=== PATIENT | female | born 1985 | race Caucasian/White ===

== ENCOUNTER 2018-08-27 22:37 | Emergency (ER) | payer BC, SELFPAY ==
[2018-08-27 22:38] VITALS: BP 137/98; PULSE 105; RESP 18; TEMP 37; O2SAT 99; BMI 39.5
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
[2018-08-27 23:07] LABS: Mucous, Urine 0 SEEN /hpf (<or=2+); Red Blood Cells-Urine 0 SEEN /hpf (0-5)
[2018-08-27 23:09] LABS: Color, Urine Straw (Yellow); Glucose, Dipstick Normal (Normal); Ketone-Dipstick Negative (Negative); Leukocyte Esterase-Dipstick 100 /ul (Negative); Nitrite-Dipstick Negative (Negative); Occult Blood-Urine Negative /ul (Negative); Protein-Dipstick Negative (Negative); Specific Gravity, Urine 1.005 (1.002-1.030); Urine Bilirubin Dipstick Negative (Negative); Urine Clarity Clear (Clear); Urine Urobilinogen Normal (Normal)
[2018-08-27 23:10] LABS: Internal QC Validated? YES +Cl - CLEAR BKGD; Pregnancy, Urine Negative Negative
[2018-08-27 23:14] LABS: Bacteria RARE /hpf (None Seen); Squamous Epithelial Cells - UA 0-5 SEEN /hpf (5-10); White Blood Cells 0-5 SEEN /hpf (0-5)
--- NOTE | 2018-08-27 23:54 | ED.DEP ---
ED Disposition - Plan for ED Patient: Instructions: Wound Care Referrals: Stanislaw Florian DO [Primary Care Provider] - Clinic,Wound [None] -
[2018-08-28 00:15] VITALS: BP 121/72; PULSE 90; RESP 15; O2SAT 98
== END 2018-08-28 00:16 | disposition home or self-care (01) ==
PROVIDERS: Emergency Provider Emergency Medicine; Family Provider Family Medicine; PCP Family Medicine
DX: R30.0 Dysuria (principal); L97.829 Non-pressure chronic ulcer of other part of left lower leg with unspecified severity; I10 Essential (primary) hypertension; Z72.0 Tobacco use; Z79.899 Other long term (current) drug therapy
CPT/HCPCS: 81001; 81025; 87077; 87086; 87088; 87186; 99283

== ENCOUNTER 2019-06-07 01:49 | Emergency (ER) | payer BC, SELFPAY ==
[2019-06-07 01:49] VITALS: BP 199/112; PULSE 93; RESP 16; TEMP 36.2; O2SAT 97; BMI 40.7
--- NOTE | 2019-06-07 02:07 | ED.DCSUM_ITS ---
- ER Visit Summary Date of Service: 06/07/19 Chief Complaint: Leg wounds History of Present Illness: The patient is a 33 F who tells me that when she was she had preeclampsia. She developed significant swelling of the legs. Her legs have continued to be swollen and as time has gone on the skin has become thick dry and now she has wounds that are not healing. She was seen earlier this year and was referred to the wound clinic. She states she did not get a call back to make an appointment. She is also out of her metoprolol that she takes for hypertension. No fevers. She denies history of diabetes. Physical Examination: Afebrile noted hypertension 199/112 (out of blood pressure medication) Gen: Well-nourished well-developed Head: Normocephalic atraumatic Eyes: Perrl EOMI ENT: TMs clear no rhinorrhea moist mucous membranes Neck: Supple no lymphadenopathy no JVD nontender CVS: Regular rate rhythm no murmurs normal S1-S2 Respiratory: No distress clear to auscultation bilaterally chest nontender Abdomen: Soft nontender nondistended normal bowel sounds no masses Back: Nontender Extremity: The lower extremities show venous stasis changes of skin thickening dry skin and discoloration. The dorsum of the right foot demonstrates approximately 3 cm ulcer. The left anterior leg demonstrates a 5 x 3 cm ulcer with granulation tissue and inferior near the level of the ankle there are 2 circular ulcers that have started to coalesce. Skin: Normal color no rash Neuro: alert orientated ?3 CN II-XII intact normal strength sensation reflexes gait cerebellar Psych: Normal affect normal mood Test Results: Wound culture was obtained. Accu-Chek was obtained - 104. Emergency Department Course and Treatment: I will refill the patient's metoprolol for her blood pressure but suggested that she should discuss with her doctor blood pressure medications as she feels fatigued on the metoprolol. She also needs to be seen at the wound care clinic I have called and left a message for them. She will be started on Keflex. Wound care discussed. Impression: 1. Venous stasis bilateral legs 2. Chronic venous stasis ulcers bilateral legs 3. Medication refill This note was generated with [employer] software. It may contain incorrect words, spelling, and punctuation that were not noted in review of the chart prior to signing ED Disposition - Plan for ED Patient: Disposition: Home or Assisted Living Instructions: Lymphedema Prescriptions: Cephalexin [Keflex] 500 mg PO Q6 #40 cap Transmission Status: Received by [facility] Metoprolol(XL)Succ [Toprol Xl (Beta Arti)] 100 mg PO DAILY #30 tab Transmission Status: Received by [facility] Referrals: Stanislaw Florian DO [Primary Care Provider] - As soon as possible Clinic,Wound [None] - As soon as possible
[2019-06-07 02:21] LABS: Bedside Glucose 104 mg/dL (70-110)
[2019-06-07] MEDS: Cephalexin 250 MG Capsule 500 MG PO (02:25)
== END 2019-06-07 02:39 | disposition home or self-care (01) ==
PROVIDERS: Emergency Provider Emergency Medicine; Family Provider Family Medicine; PCP Family Medicine
DX: I83.018 Varicose veins of right lower extremity with ulcer other part of lower leg (principal); I83.028 Varicose veins of left lower extremity with ulcer other part of lower leg; I10 Essential (primary) hypertension; E66.9 Obesity, unspecified; Z76.0 Encounter for issue of repeat prescription; Z72.0 Tobacco use
CPT/HCPCS: 82962; 87070; 87077; 87186; 87205; 99283

== ENCOUNTER 2019-06-21 10:30 | Outpatient (RCR) | payer BC, SELFPAY ==
[2019-06-14 11:34] VITALS: BP 172/105; PULSE 92; RESP 18; TEMP 36.8; BMI 40.7
--- NOTE | 2019-06-14 12:59 | HP.PCM_ITS ---
(1) Open wounds involving multiple regions of lower extremity Status: Acute Current Visit: Yes Code(s): S81.809A - Unspecified open wound, unspecified lower leg, initial encounter (2) Infected open wound Status: Acute Current Visit: Yes Code(s): T14.8XXA - Other injury of unspecified body region, initial encounter; L08.9 - Local infection of the skin and subcutaneous tissue, unspecified (3) Drug addiction Status: Acute Current Visit: Yes Code(s): F19.20 - Other psychoactive substance dependence, uncomplicated (4) Peripheral vascular disease Status: Acute Current Visit: Yes Code(s): I73.9 - Peripheral vascular disease, unspecified (5) Edema of both lower extremities due to peripheral venous insufficiency Status: Acute Current Visit: Yes Code(s): I87.2 - Venous insufficiency (chronic) (peripheral) (6) Malignant hypertension Status: Acute Current Visit: Yes Code(s): I10 - Essential (primary) hypertension History of Present Illness Date of Service: 06/14/19 Chief Complaint: Follow-up bilateral lower legs History of Wound: Patient was seen in the emergency room at [facility] on 06 07 for a infection in her right dorsal foot she states from hitting a cabinet door that never closes. Questioned about her left leg from skin popping was positive approximately 5 months ago she has had these wounds for at least 6 months. Now she has infection from poor hygiene and not caring. She has a lot of edema in her lower extremities with stasis dermatitis. 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 Patient is currently on metoprolol 50 mg but has not done any follow- up. Patient is currently on Suboxone 8 mg a day for her drug addiction problems and states her last use was 5 months ago. Past Medical History Past Medical History: Drug addiction, open wounds from injection sites abscess left leg, trauma right dorsal foot Allergies/Adverse Reactions: Allergies Sulfa (Sulfonamide Antibiotics) Adverse Reaction (Verified 06/07/19 01:52) Other Home Medications: Ambulatory Orders Medication Instructions Recorded Buprenorphine HCl/Naloxone HCl 2 mg SL DAILY 08/27/18 [Suboxone 8 mg-2 mg Sl Film] Metoprolol(XL)Succ [Toprol Xl 100 mg PO DAILY 08/27/18 (Beta Arti)] Cephalexin [Keflex] 500 mg PO Q6 #40 cap 06/07/19 Metoprolol(XL)Succ [Toprol Xl 100 mg PO DAILY #30 tab 06/07/19 (Beta Arti)] Smoking Status: Current every day smoker Review of Systems Constitutional: Denies: Chills, Fever Eyes: Denies: Blurred vision, Drainage, Pain HEENT: Denies: Difficulty Hearing, Difficulty Swallowing, Sore Throat, Visual Changes Cardiovascular: Denies: Chest Pain, Palpitations, Syncope Respiratory: Denies: Cough, Shortness of Breath Gastrointestinal: Denies: Abdominal Pain, Nausea, Vomiting Genitourinary: Denies: Dysuria, Frequency Musculoskeletal: Denies: Joint Pain, Muscle pain Skin: Reports: - - Right dorsal foot left medial lower leg and left upper medial leg. Denies: Jaundice, Rash Neurological: Denies: Balance problems, Change in Speech, Difficulty swallowing, Focal weakness Psychiatric: Denies: Anxiety, Depression Endocrine: Denies: Change in Body Habitus Hematologic/ Lymphatic: Denies: Adenopathy - Physical Exam Vital Signs Temp Pulse Resp BP 98.2 F 92 18 172/105 H 06/14/19 11:34 06/14/19 11:34 06/14/19 11:34 06/14/19 11:34 General: Oriented x3, Cooperative, Well developed HEENT: Atraumatic, PERRLA Oral: Moist Mucosa Neck: Supple, No JVD Lungs: Clear to auscultation, Normal air movement Cardiovascular: Regular rate, Regular Rhythm Abdomen: Bowel Sounds Present, Soft, Non Tender, No Hepato-splenomegaly Extremities: No clubbing, No edema Skin: Ulcer/ Wound Wound Measurements and Assessment WC - Nurse 1 - General Ulcer Measurement Start: 06/14/19 11:27 Freq: Status: Active Protocol: Activity Type Activity Date Activity User E-Sign Co-Sign Detail Recorded Client Recorded Date Recorded By Document 06/14/19 11:34 DV [id number] 06/14/19 12:12 DV 06/14/19 11:34 Wound Center Nurse 1 [Ulcer Assessment] #3 MEDIAL LLE -Combined with other wound No -Current Size (cm) - Length 4.3 -Current Size (cm) - Width 3.2 -Current Size (cm) - Depth 0.1 -Total Square Cm 13.76 -Date of Last Picture (Recall this 06/14/19 field) -Photo Taken Yes #2 LEFT MEDIAL ANKLE -Combined with other wound No -Current Size (cm) - Length 6.0 -Current Size (cm) - Width 4.0 -Current Size (cm) - Depth 0.2 -Total Square Cm 24.00 #1 DORSAL RIGHT FOOT -Combined with other wound No -Current Size (cm) - Length 4.2 -Current Size (cm) - Width 4.0 -Current Size (cm) - Depth 0.1 -Total Square Cm 16.80 -Date of Last Picture (Recall this 06/14/19 field) -Photo Taken Yes -Tunneling No -Undermining/Tunneling No -Circular Undermining No -Classification - Thickness Full Thickness without Exposed Support Structure -Exudate Amt Large -Exudate Type Yellow/Green -Wound Margin Indistinct, Non -Visible -Granulation Amt None Present (0 %) -Granulation Quality N/A -Slough/Fibrin Yes -Necrosis Amt Large (67-100%) -Necrotic Tissue Type Adherent Slough -Structure Exposed None/Limited to Skin Breakdown -Texture (Nicolasa-wound Skin Appearance) Assessed, Localized Edema ,Scarring -Moisture (Nicolasa-wound Skin Appearance Assessed, ) Weeping -Color (Nicolasa-wound Skin Appearance) Assessed, Erythema, Hemosiderin Staining -Temperature (Nicolasa-wound Skin No Abnormality Appearance) (Pt Warm) -Tenderness on Palpation (Nicolasa-wound Yes Skin Appearance) -Ulcer Cleansing Rinsed/ Irrigated with Saline -Foul Odor after Cleansing Yes -Anesthetic Used 5% Lidocaine Gel WC - Nurse 2 - General Ulcer CM Notes Start: 06/14/19 11:27 Freq: Status: Active Protocol: Activity Type Activity Date Activity User E-Sign Co-Sign Detail Recorded Client Recorded Date Recorded By Document 06/14/19 12:28 MW [id number] 06/14/19 12:43 MW 06/14/19 12:28 Wound Center Nurse 2 [Procedure/Treatment] #3 MEDIAL LLE -Time 12:28 -Correct Patient Yes -Correct Side, Site, Position Yes -Correct Procedure Yes -Procedure Performed Yes -Type of Procedure Debridement -Clinical Debridement Subcutaneous -Post Debridement Size (cm) - Length 9.0 -Post Debridement Size (cm) - Width 4.0 -Post Debridement Size (cm) - Depth 0.2 -Total Square Cm 36.00 -Wound/Ulcer Outcome Not Healed -Ulcer Cleansing Rinsed/ Irrigated with Saline -Foul Odor after Cleansing No -Bioengineered Tissue No -Bleeding Controlled with Pressure -Offloading No -Treatment Response Procedure Tolerated Well #2 LEFT MEDIAL ANKLE -Time 12:28 -Correct Patient Yes -Correct Side, Site, Position Yes -Correct Procedure Yes -Procedure Performed Yes -Type of Procedure Debridement -Clinical Debridement Subcutaneous -Post Debridement Size (cm) - Length 4.5 -Post Debridement Size (cm) - Width 3.0 -Post Debridement Size (cm) - Depth 0.1 -Total Square Cm 13.50 -Wound/Ulcer Outcome Not Healed -Ulcer Cleansing Rinsed/ Irrigated with Saline -Foul Odor after Cleansing No -Bioengineered Tissue No -Bleeding Controlled with Pressure -Offloading No -Treatment Response Procedure Tolerated Well #1 DORSAL RIGHT FOOT -Time 12:29 -Correct Patient Yes -Correct Side, Site, Position Yes -Correct Procedure Yes -Procedure Performed Yes -Type of Procedure Debridement -Clinical Debridement Subcutaneous -Post Debridement Size (cm) - Length 4.5 -Post Debridement Size (cm) - Width 4.5 -Post Debridement Size (cm) - Depth 0.1 -Total Square Cm 20.25 -Wound/Ulcer Outcome Not Healed -Ulcer Cleansing Rinsed/ Irrigated with Saline -Foul Odor after Cleansing No -Bioengineered Tissue No -Bleeding Controlled with Pressure -Offloading No -Treatment Response Procedure Tolerated Well [See Physician Procedure note for Specifics] Pain Scale: 0-10 Numeric [Pain] -Is Patient Pain Free? Yes Musculoskeletal: No Tenderness to Palpation of Joints or Extremities Lymphatic: No Cervical, Supraclavicular, or Inguinal Adenopathy Neurological: Cranial nerves II-XII grossly intact, Neuro grossly intact Psych/Mental Status: Normal Affect, Appropriate, Alert and oriented to time, place, person, mood and affect Debridement Note Post-Debridement Measurements/Treatment WC - Nurse 2 - General Ulcer CM Notes Start: 06/14/19 11:27 Freq: Status: Active Protocol: Activity Type Activity Date Activity User E-Sign Co-Sign Detail Recorded Client Recorded Date Recorded By Document 06/14/19 12:28 MW [email or web address] 06/14/19 12:43 MW 06/14/19 12:28 Wound Center Nurse 2 #3 MEDIAL LLE -Time 12:28 -Correct Patient Yes -Correct Side, Site, Position Yes -Correct Procedure Yes -Procedure Performed Yes -Type of Procedure Debridement -Clinical Debridement Subcutaneous -Post Debridement Size (cm) - Length 9.0 -Post Debridement Size (cm) - Width 4.0 -Post Debridement Size (cm) - Depth 0.2 -Total Square Cm 36.00 -Wound/Ulcer Outcome Not Healed -Ulcer Cleansing Rinsed/ Irrigated with Saline -Foul Odor after Cleansing No -Bioengineered Tissue No -Bleeding Controlled with Pressure -Offloading No -Treatment Response Procedure Tolerated Well #2 LEFT MEDIAL ANKLE -Time 12:28 -Correct Patient Yes -Correct Side, Site, Position Yes -Correct Procedure Yes -Procedure Performed Yes -Type of Procedure Debridement -Clinical Debridement Subcutaneous -Post Debridement Size (cm) - Length 4.5 -Post Debridement Size (cm) - Width 3.0 -Post Debridement Size (cm) - Depth 0.1 -Total Square Cm 13.50 -Wound/Ulcer Outcome Not Healed -Ulcer Cleansing Rinsed/ Irrigated with Saline -Foul Odor after Cleansing No -Bioengineered Tissue No -Bleeding Controlled with Pressure -Offloading No -Treatment Response Procedure Tolerated Well #1 DORSAL RIGHT FOOT -Time 12:29 -Correct Patient Yes -Correct Side, Site, Position Yes -Correct Procedure Yes -Procedure Performed Yes -Type of Procedure Debridement -Clinical Debridement Subcutaneous -Post Debridement Size (cm) - Length 4.5 -Post Debridement Size (cm) - Width 4.5 -Post Debridement Size (cm) - Depth 0.1 -Total Square Cm 20.25 -Wound/Ulcer Outcome Not Healed -Ulcer Cleansing Rinsed/ Irrigated with Saline -Foul Odor after Cleansing No -Bioengineered Tissue No -Bleeding Controlled with Pressure -Offloading No -Treatment Response Procedure Tolerated Well Pain Scale: 0-10 Numeric Is Patient Pain Free? Yes Wound debrided: Right dorsal foot Type of Debridement: Selective debridement Depth: Down to and including healthy tissue Percentage of wound debrided: 100 Instrument Used: - - Gauze Tissue Removed: Scabbing and some slough Severity: Limited To Skin Breakdown Amount of bleeding with debridement: None Bleeding Controlled with: Pressure Patient did not tolerate procedure well - Additional Wound Wound debrided: Left medial lower leg Type of Debridement: Selective debridement Anesthesia Used: 5% Lidocaine Gel Depth: Down to and including healthy tissue Percentage of wound debrided: 100 Instrument Used: - - Gauze Tissue Removed: Slough and devitalized tissue Amount of bleeding with debridement: None Bleeding Controlled with: Pressure Patient tolerated procedure: Patient did not tolerate procedure well - Additional Wound Wound debrided: Left upper medial leg Type of Debridement: Selective debridement Anesthesia Used: 5% Lidocaine Gel Depth: Down to and including healthy tissue Percentage of wound debrided: 100 Instrument Used: - Tissue Removed: Slough and devitalized tissue Severity: Limited To Skin Breakdown Amount of bleeding with debridement: None Bleeding Controlled with: Pressure Patient tolerated procedure: Patient did not tolerate procedure well Assessment/Plan Arterial and brachial studies and venous studies Active Problems Open wounds involving multiple regions of lower extremity (Acute) Infected open wound (Acute) Drug addiction (Acute) Peripheral vascular disease (Acute) Edema of both lower extremities due to peripheral venous insufficiency (Acute) Malignant hypertension (Acute) Assessment: Drug addiction skin popping. Abscesses left lower leg and upper leg from use. Right dorsal foot traumatic opening. Malignant hypertension. Poor hygiene Plan: Start scrubbing legs from knees to toes with antibacterial soap such as Dial. Apply Santyl to open areas cover with gauze Cassie and then double layer Tubigrip. Continue taking the Keflex that was prescribed in the emergency room. Ordered AB studies and venous studies. Follow-up in 1 week
[2019-06-21 11:26] VITALS: BP 184/116; PULSE 108; RESP 18; TEMP 37.3; BMI 40.7
--- NOTE | 2019-06-21 12:53 | PN.PCM_ITS ---
(1) Open wounds involving multiple regions of lower extremity Status: Acute Current Visit: Yes Code(s): S81.809A - Unspecified open wound, unspecified lower leg, initial encounter (2) Infected open wound Status: Acute Current Visit: Yes Code(s): T14.8XXA - Other injury of unspecified body region, initial encounter; L08.9 - Local infection of the skin and subcutaneous tissue, unspecified (3) Drug addiction Status: Acute Current Visit: Yes Code(s): F19.20 - Other psychoactive substance dependence, uncomplicated (4) Peripheral vascular disease Status: Acute Current Visit: Yes Code(s): I73.9 - Peripheral vascular disease, unspecified (5) Edema of both lower extremities due to peripheral venous insufficiency Status: Acute Current Visit: Yes Code(s): I87.2 - Venous insufficiency (chronic) (peripheral) (6) Malignant hypertension Status: Acute Current Visit: Yes Code(s): I10 - Essential (primary) hypertension Type of Wound Date of Service: 06/21/19 Chief Complaint: Follow-up bilateral lower legs History of Wound: Patient was seen in the emergency room at [facility] on 06 07 for a infection in her right dorsal foot she states from hitting a cabinet door that never closes. Questioned about her left leg from skin popping was positive approximately 5 months ago she has had these wounds for at least 6 months. Now she has infection from poor hygiene and not caring. She has a lot of edema in her lower extremities with stasis dermatitis. 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 Patient is currently on metoprolol 50 mg but has not done any follow- up. Patient is currently on Suboxone 8 mg a day for her drug addiction problems and states her last use was 5 months ago. Progress of Wound: The wounds both anterior lower extremities are smaller and more superficial. Patient has been scrubbing and using Santyl they look better. Patient has a poor tolerance to pain but is a drug addict and is unable to be medicated she is still in remission. Patient's blood pressure is still very high and was given an appointment with 1 of the family doctors for her medications. - Physical Exam Vital Signs Temp Pulse Resp BP 99.1 F 108 H 18 184/116 H 06/21/19 11:26 06/21/19 11:26 06/21/19 11:26 06/21/19 11:26 General: Oriented x3, Cooperative, Well developed HEENT: Atraumatic, PERRLA Oral: Moist Mucosa Neck: Supple, No JVD Lungs: Clear to auscultation, Normal air movement Cardiovascular: Regular rate, Regular Rhythm Abdomen: Bowel Sounds Present, Soft, Non Tender, No Hepato-splenomegaly Extremities: No clubbing, No edema Skin: Ulcer/ Wound - Bilateral lower extremity open ulcers Wound Measurements and Assessment WC - Nurse 1 - General Ulcer Measurement Start: 06/14/19 11:27 Freq: Status: Active Protocol: Activity Type Activity Date Activity User E-Sign Co-Sign Detail Recorded Client Recorded Date Recorded By Document 06/21/19 11:26 DV [id number] 06/21/19 11:48 DV 06/21/19 11:26 Wound Center Nurse 1 [Ulcer Assessment] #3 MEDIAL LLE -Combined with other wound No -Current Size (cm) - Length 3.5 -Current Size (cm) - Width 3.6 -Current Size (cm) - Depth 0.2 -Total Square Cm 12.60 -Photo Taken No -Epithelialization None Present -Tunneling No -Undermining/Tunneling No -Circular Undermining No -Classification - Thickness Full Thickness without Exposed Support Structure -Exudate Amt Medium -Exudate Type Serosanguineous -Wound Margin Flat & Intact -Granulation Amt None Present (0 %) -Granulation Quality N/A -Slough/Fibrin No -Necrosis Amt Large (67-100%) -Necrotic Tissue Type Adherent Slough -Structure Exposed None/Limited to Skin Breakdown -Texture (Nicolasa-wound Skin Appearance) Assessed, Scarring -Moisture (Nicolasa-wound Skin Appearance Maceration, ) Weeping -Color (Nicolasa-wound Skin Appearance) Assessed, Hemosiderin Staining -Temperature (Nicolasa-wound Skin No Abnormality Appearance) (Pt Warm) -Tenderness on Palpation (Nicolasa-wound Yes Skin Appearance) -Foul Odor after Cleansing No -Anesthetic Used 5% Lidocaine Gel #2 LEFT MEDIAL ANKLE -Combined with other wound No -Current Size (cm) - Length 4.4 -Current Size (cm) - Width 2.5 -Current Size (cm) - Depth 0.1 -Total Square Cm 11.00 -Photo Taken No -Epithelialization None Present -Tunneling No -Undermining/Tunneling No -Circular Undermining No -Classification - Thickness Full Thickness without Exposed Support Structure -Exudate Amt Medium -Exudate Type Serosanguineous -Wound Margin Flat & Intact -Granulation Amt Small (1-33%) -Granulation Quality Red -Necrosis Amt Large (67-100%) -Necrotic Tissue Type Adherent Slough -Structure Exposed None/Limited to Skin Breakdown -Texture (Nicolasa-wound Skin Appearance) Assessed, Localized Edema ,Scarring -Moisture (Nicolasa-wound Skin Appearance Assessed, ) Weeping -Color (Nicolasa-wound Skin Appearance) Assessed, Erythema, Hemosiderin Staining -Temperature (Nicolasa-wound Skin No Abnormality Appearance) (Pt Warm) -Tenderness on Palpation (Nicolasa-wound Yes Skin Appearance) -Foul Odor after Cleansing No -Anesthetic Used 5% Lidocaine Gel #1 DORSAL RIGHT FOOT -Combined with other wound No -Current Size (cm) - Length 4.2 -Current Size (cm) - Width 3.2 -Current Size (cm) - Depth 0.1 -Total Square Cm 13.44 -Photo Taken No -Epithelialization None Present -Tunneling No -Undermining/Tunneling No -Circular Undermining No -Classification - Thickness Full Thickness without Exposed Support Structure -Exudate Amt Medium -Exudate Type Serosanguineous -Wound Margin Flat & Intact -Granulation Amt None Present (0 %) -Granulation Quality N/A -Slough/Fibrin No -Necrosis Amt Large (67-100%) -Necrotic Tissue Type Adherent Slough -Structure Exposed None/Limited to Skin Breakdown -Texture (Nicolasa-wound Skin Appearance) Assessed, Scarring -Moisture (Nicolasa-wound Skin Appearance Assessed, ) Weeping -Color (Nicolasa-wound Skin Appearance) Assessed, Hemosiderin Staining -Temperature (Nicolasa-wound Skin No Abnormality Appearance) (Pt Warm) -Tenderness on Palpation (Nicolasa-wound Yes Skin Appearance) -Foul Odor after Cleansing No -Anesthetic Used 5% Lidocaine Gel WC - Nurse 2 - General Ulcer CM Notes Start: 06/14/19 11:27 Freq: Status: Active Protocol: Activity Type Activity Date Activity User E-Sign Co-Sign Detail Recorded Client Recorded Date Recorded By Document 06/21/19 11:57 MW [id number] 06/21/19 12:06 MW 06/21/19 11:57 Wound Center Nurse 2 [Procedure/Treatment] #3 MEDIAL LLE -Time 11:57 -Correct Patient Yes -Correct Side, Site, Position Yes -Correct Procedure Yes -Procedure Performed Yes -Type of Procedure Debridement -Clinical Debridement Subcutaneous -Post Debridement Size (cm) - Length 3.5 -Post Debridement Size (cm) - Width 3.8 -Post Debridement Size (cm) - Depth 0.1 -Total Square Cm 13.30 -Wound/Ulcer Outcome Not Healed -Ulcer Cleansing Rinsed/ Irrigated with Saline -Foul Odor after Cleansing No -Bioengineered Tissue No -Bleeding Controlled with Pressure -Offloading No -Treatment Response Procedure Tolerated Well #2 LEFT MEDIAL ANKLE -Time 11:59 -Correct Patient Yes -Correct Side, Site, Position Yes -Correct Procedure Yes -Procedure Performed Yes -Type of Procedure Debridement -Clinical Debridement Subcutaneous -Post Debridement Size (cm) - Length 4.2 -Post Debridement Size (cm) - Width 3.5 -Post Debridement Size (cm) - Depth 0.1 -Total Square Cm 14.70 -Wound/Ulcer Outcome Not Healed -Ulcer Cleansing Rinsed/ Irrigated with Saline -Foul Odor after Cleansing No -Bioengineered Tissue No -Bleeding Controlled with Pressure -Offloading No -Treatment Response Procedure Tolerated Well #1 DORSAL RIGHT FOOT -Time 11:59 -Correct Patient Yes -Correct Side, Site, Position Yes -Correct Procedure Yes -Procedure Performed Yes -Type of Procedure Debridement -Clinical Debridement Subcutaneous -Post Debridement Size (cm) - Length 4.1 -Post Debridement Size (cm) - Width 3.5 -Post Debridement Size (cm) - Depth 0.1 -Total Square Cm 14.35 -Wound/Ulcer Outcome Not Healed -Ulcer Cleansing Rinsed/ Irrigated with Saline -Foul Odor after Cleansing No -Bioengineered Tissue No -Bleeding Controlled with Pressure -Offloading No -Treatment Response Procedure Tolerated Well [See Physician Procedure note for Specifics] Pain Scale: 0-10 Numeric [Pain] -Is Patient Pain Free? Yes Musculoskeletal: No Tenderness to Palpation of Joints or Extremities Lymphatic: No Cervical, Supraclavicular, or Inguinal Adenopathy Neurological: Cranial nerves II-XII grossly intact, Neuro grossly intact Psych/Mental Status: Normal Affect, Appropriate Debridement Note Post-Debridement Measurements/Treatment WC - Nurse 2 - General Ulcer CM Notes Start: 06/14/19 11:27 Freq: Status: Active Protocol: Activity Type Activity Date Activity User E-Sign Co-Sign Detail Recorded Client Recorded Date Recorded By Document 06/14/19 12:28 MW [id number] 06/14/19 12:43 MW Document 06/21/19 11:57 MW [id number] 06/21/19 12:06 MW 06/14/19 06/21/19 12:28 11:57 Wound Center Nurse 2 #3 MEDIAL LLE -Time 12:28 11:57 -Correct Patient Yes Yes -Correct Side, Site, Position Yes Yes -Correct Procedure Yes Yes -Procedure Performed Yes Yes -Type of Procedure Debridement Debridement -Clinical Debridement Subcutaneous Subcutaneous -Post Debridement Size (cm) - Length 9.0 3.5 -Post Debridement Size (cm) - Width 4.0 3.8 -Post Debridement Size (cm) - Depth 0.2 0.1 -Total Square Cm 36.00 13.30 -Wound/Ulcer Outcome Not Healed Not Healed -Ulcer Cleansing Rinsed/ Rinsed/ Irrigated with Irrigated with Saline Saline -Foul Odor after Cleansing No No -Bioengineered Tissue No No -Bleeding Controlled with Pressure Pressure -Offloading No No -Treatment Response Procedure Procedure Tolerated Well Tolerated Well #2 LEFT MEDIAL ANKLE -Time 12:28 11:59 -Correct Patient Yes Yes -Correct Side, Site, Position Yes Yes -Correct Procedure Yes Yes -Procedure Performed Yes Yes -Type of Procedure Debridement Debridement -Clinical Debridement Subcutaneous Subcutaneous -Post Debridement Size (cm) - Length 4.5 4.2 -Post Debridement Size (cm) - Width 3.0 3.5 -Post Debridement Size (cm) - Depth 0.1 0.1 -Total Square Cm 13.50 14.70 -Wound/Ulcer Outcome Not Healed Not Healed -Ulcer Cleansing Rinsed/ Rinsed/ Irrigated with Irrigated with Saline Saline -Foul Odor after Cleansing No No -Bioengineered Tissue No No -Bleeding Controlled with Pressure Pressure -Offloading No No -Treatment Response Procedure Procedure Tolerated Well Tolerated Well #1 DORSAL RIGHT FOOT -Time 12:29 11:59 -Correct Patient Yes Yes -Correct Side, Site, Position Yes Yes -Correct Procedure Yes Yes -Procedure Performed Yes Yes -Type of Procedure Debridement Debridement -Clinical Debridement Subcutaneous Subcutaneous -Post Debridement Size (cm) - Length 4.5 4.1 -Post Debridement Size (cm) - Width 4.5 3.5 -Post Debridement Size (cm) - Depth 0.1 0.1 -Total Square Cm 20.25 14.35 -Wound/Ulcer Outcome Not Healed Not Healed -Ulcer Cleansing Rinsed/ Rinsed/ Irrigated with Irrigated with Saline Saline -Foul Odor after Cleansing No No -Bioengineered Tissue No No -Bleeding Controlled with Pressure Pressure -Offloading No No -Treatment Response Procedure Procedure Tolerated Well Tolerated Well Pain Scale: 0-10 Numeric Is Patient Pain Free? Yes Yes Wound debrided: Left superior ulcer Type of Debridement: Excisional debridement Anesthesia Used: 5% Lidocaine Gel Depth: Down to and including healthy tissue, in the subcutaneous layer Percentage of wound debrided: 100 Instrument Used: 5mm curette Tissue Removed: Devitalized tissue slough and fibrin Severity: Limited To Skin Breakdown Amount of bleeding with debridement: Mild Bleeding Controlled with: Compression and gauze Patient tolerated procedure well - Additional Wound Wound debrided: Left lower anterior extremity ulcers Laterality: Left Anesthesia Used: 5% Lidocaine Gel Depth: Down to and including healthy tissue, in the subcutaneous layer Percentage of wound debrided: 100 Instrument Used: 7mm curette Tissue Removed: Fibrin and some slough devitalized tissue Severity: Limited To Skin Breakdown Amount of bleeding with debridement: Mild Bleeding Controlled with: Compression and gauze Patient tolerated procedure: Patient tolerated procedure well - Additional Wound Wound debrided: Right dorsal foot Type of Debridement: Excisional debridement Anesthesia Used: 5% Lidocaine Gel Depth: Down to and including healthy tissue Percentage of wound debrided: 100 Instrument Used: 5mm curette Tissue Removed: Devitalized tissue slough and fibrin Severity: Limited To Skin Breakdown Amount of bleeding with debridement: Mild Bleeding Controlled with: Pressure, Compression and gauze Patient tolerated procedure: Patient tolerated procedure well Assessment/Plan Active Problems Open wounds involving multiple regions of lower extremity (Acute) Infected open wound (Acute) Drug addiction (Acute) Peripheral vascular disease (Acute) Edema of both lower extremities due to peripheral venous insufficiency (Acute) Malignant hypertension (Acute) Assessment: Drug addiction skin popping. Abscesses left lower leg and upper leg from use. Right dorsal foot traumatic opening. Malignant hypertension. Poor hygiene Plan: Start scrubbing legs from knees to toes with antibacterial soap such as Dial. Apply Santyl to open areas cover with gauze Cassie and then double layer Tubigrip. Continue taking the Keflex that was prescribed in the emergency room. Ordered AB studies and venous studies. Follow-up in 1 week
== END 2019-07-04 23:59 ==
LOC: WC 10:30
PROVIDERS: Family Provider Family Medicine; PCP Family Medicine; Visit Provider Nurse Practitioner
DX: I73.9 Peripheral vascular disease, unspecified (principal); I87.2 Venous insufficiency (chronic) (peripheral); L97.511 Non-pressure chronic ulcer of other part of right foot limited to breakdown of skin; L97.821 Non-pressure chronic ulcer of other part of left lower leg limited to breakdown of skin; F19.20 Other psychoactive substance dependence, uncomplicated; I10 Essential (primary) hypertension; L02.416 Cutaneous abscess of left lower limb; F17.200 Nicotine dependence, unspecified, uncomplicated; Z79.899 Other long term (current) drug therapy
CPT/HCPCS: 11042; 11045; 99213; G0463

== ENCOUNTER → 2019-06-29 13:37 | Outpatient (CLI) | payer BC, SELFPAY ==
[2019-06-21 11:26] VITALS: BMI 40.7
[2019-06-29 15:57] LABS: ALB/GLOB Ratio 0.9 RATIO (0.9-2.4); AST(SGOT) 23 U/L (15-37); Alanine Aminotransfer ALT/SGPT 17 U/L (13-56); Albumin, Serum 3.5 g/dL (3.2-5.0); Alkaline Phosphatase 70 U/L (45-117); Anion Gap 8 (5-15); BUN 4 mg/dL (7-18); BUN/Creat Ratio 6.5 RATIO (10-20); Calcium,Total 8.9 mg/dL (8.5-10.1); Chloride 100 mmol/L (98-107); Cholesterol 153 mg/dL (200); Creatinine, Serum 0.62 mg/dL (0.55-1.02); EST Glomerular Filtration Rate 119 mL/min (>60); Est Glom Filt Rate - Afr Amer 144 mL/min (>60); Free T3 3.8 pg/mL (2.18-3.98); Globulin 4.1 g/dL (2.2-4.2); Glucose 87 mg/dL (74-106); High Density Lipoprotein 37 mg/dL; Potassium 3.4 mmol/L (3.5-5.1); Protein, Total 7.6 g/dL (6.4-8.2); Sodium Level 137 mmol/L (136-145); T4 Free Direct 1.05 ng/dL (0.76-1.46); Thyroid Stim Hormone (TSH) 2.63 uIU/mL (0.358-3.74); Triglycerides 135 mg/dL; Very Low Density Lipoprotein 27 mg/dL (5-40)
[2019-06-29 16:27] LABS: Absolute Lymphocyte Count 1.49 X10^3/uL (0.83-4.51); Absolute Neutrophil Count 4.7 X10^3/uL (2.0-7.7); Basophil# 0.03 X10^3/uL; Basophil% 0.4 % (0-1); Eosinophil# 0.07 X10^3/uL; Hematocrit 43.1 % (37-47); Hemoglobin 13.9 g/dL (12.0-15.0); Lymphocyte # 1.49 X10^3/ul (4.0); Lymphocyte % 22.3 % (19-41); Mean Corp Hgb Conc 32.3 g/dL (32-36); Mean Corpuscular Hgb 32.1 pg (27.0-32.0); Mean Corpuscular Volume 99.5 fL (81-99); Mean Platelet Vol. 9.1 fl (6.2-12.0); Monocyte# 0.39 X10^3/uL; Monocyte% 5.8 % (0-10); NRBC Flagged by Analyzer 0 % (0-5); Neutrophil # 4.66 X10^3/uL (2.7-7.7); Neutrophil % 70.1 % (47-70); Platelet Count 160 K/mm3 (150-450); RBC Distribution Width SD 50.1 fl (35.1-43.9); Red Blood Count 4.33 M/mm3 (4.2-5.4); White Blood Count 6.7 K/mm3 (4.4-11.0)
== END ==
PROVIDERS: Family Provider Family Medicine; PCP Family Medicine; Visit Provider Family Medicine
DX: I10 Essential (primary) hypertension (principal); E01.0 Iodine-deficiency related diffuse (endemic) goiter; R30.0 Dysuria
CPT/HCPCS: 36415; 80053; 80061; 84439; 84443; 84481; 85025; 87086; 87088; 87186

== ENCOUNTER 2019-08-02 11:00 | Outpatient (RCR) | payer BC, SELFPAY ==
[2019-07-05 01:05] VITALS: BP 184/116; PULSE 108; RESP 18; TEMP 37.3
[2019-07-06 11:34] VITALS: BP 149/96; PULSE 99; RESP 18; TEMP 36.4; BMI 40.7
--- NOTE | 2019-07-06 12:56 | PCM.WC.PN ---
(1) Drug addiction Status: Acute Current Visit: Yes Code(s): F19.20 - Other psychoactive substance dependence, uncomplicated (2) Edema of both lower extremities due to peripheral venous insufficiency Status: Acute Current Visit: Yes Code(s): I87.2 - Venous insufficiency (chronic) (peripheral) (3) Infected open wound Status: Acute Current Visit: Yes Code(s): T14.8XXA - Other injury of unspecified body region, initial encounter; L08.9 - Local infection of the skin and subcutaneous tissue, unspecified (4) Malignant hypertension Status: Acute Current Visit: Yes Code(s): I10 - Essential (primary) hypertension (5) Open wounds involving multiple regions of lower extremity Status: Acute Current Visit: Yes Code(s): S81.809A - Unspecified open wound, unspecified lower leg, initial encounter (6) Peripheral vascular disease Status: Acute Current Visit: Yes Code(s): I73.9 - Peripheral vascular disease, unspecified Type of Wound Date of Service: 07/06/19 Chief Complaint: Follow-up bilateral lower legs History of Wound: Patient was seen in the emergency room at [facility] on 06 07 for a infection in her right dorsal foot she states from hitting a cabinet door that never closes. Questioned about her left leg from skin popping was positive approximately 5 months ago she has had these wounds for at least 6 months. Now she has infection from poor hygiene and not caring. She has a lot of edema in her lower extremities with stasis dermatitis. 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 Patient is currently on metoprolol 50 mg but has not done any follow-up. Patient is currently on Suboxone 8 mg a day for her drug addiction problems and states her last use was 5 months ago. Progress of Wound: The wounds both anterior lower extremities are smaller and more superficial. Patient has been scrubbing and using Santyl they look better. Patient has a poor tolerance to pain but is a drug addict and is unable to be medicated she is still in remission. Patient's blood pressure is still very high and was given an appointment with 1 of the family doctors for her medications. - Physical Exam Vital Signs Temp Pulse Resp BP 97.6 F L 99 18 149/96 H 07/06/19 11:34 07/06/19 11:34 07/06/19 11:34 07/06/19 11:34 General: Oriented x3, Cooperative, Well developed HEENT: Atraumatic, PERRLA Oral: Moist Mucosa Neck: Supple, No JVD Lungs: Clear to auscultation, Normal air movement Cardiovascular: Regular rate, Regular Rhythm Abdomen: Bowel Sounds Present, Soft, Non Tender, No Hepato-splenomegaly Extremities: No clubbing, No edema Skin: Ulcer/ Wound - Open wounds on right dorsal foot and left medial ankle and left lower leg Wound Measurements and Assessment WC - Nurse 1 - General Ulcer Measurement Start: 07/06/19 11:34 Freq: Status: Active Protocol: Activity Type Activity Date Activity User E-Sign Co-Sign Detail Recorded Client Recorded Date Recorded By Document 07/06/19 11:34 RB [id number] 07/06/19 11:39 RB 07/06/19 11:34 Wound Center Nurse 1 [Ulcer Assessment] #3 MEDIAL LLE -Combined with other wound No -Current Size (cm) - Length 2.9 -Current Size (cm) - Width 3 -Current Size (cm) - Depth 0.1 -Total Square Cm 8.7 -Tunneling No -Undermining/Tunneling No -Circular Undermining No -Exudate Amt Small -Exudate Type Serosanguineous -Wound Margin Flat & Intact -Granulation Amt Medium (34-66%) -Granulation Quality Gratis -Slough/Fibrin Yes -Necrosis Amt Medium (34-66%) -Necrotic Tissue Type Adherent Slough -Structure Exposed N/A -Texture (Nicolasa-wound Skin Appearance) Assessed -Moisture (Nicolasa-wound Skin Appearance Assessed ) -Color (Nicolasa-wound Skin Appearance) Hemosiderin Staining -Temperature (Nicolasa-wound Skin No Abnormality Appearance) (Pt Warm) -Tenderness on Palpation (Nicolasa-wound No Skin Appearance) -Ulcer Cleansing Wound Cleanser -Foul Odor after Cleansing No -Anesthetic Used 4% Lidocaine Solution,5% Lidocaine Gel #2 LEFT MEDIAL ANKLE -Combined with other wound No -Current Size (cm) - Length 3.5 -Current Size (cm) - Width 2 -Current Size (cm) - Depth 0.1 -Total Square Cm 7.0 -Tunneling No -Undermining/Tunneling No -Circular Undermining No -Exudate Amt Small -Exudate Type Serosanguineous -Wound Margin Flat & Intact -Granulation Amt Medium (34-66%) -Granulation Quality Gratis -Slough/Fibrin Yes -Necrosis Amt Medium (34-66%) -Necrotic Tissue Type Adherent Slough -Structure Exposed N/A -Texture (Nicolasa-wound Skin Appearance) Assessed -Moisture (Nicolasa-wound Skin Appearance Assessed ) -Color (Nicolasa-wound Skin Appearance) Assessed, Hemosiderin Staining -Temperature (Nicolasa-wound Skin No Abnormality Appearance) (Pt Warm) -Tenderness on Palpation (Nicolasa-wound No Skin Appearance) -Ulcer Cleansing Wound Cleanser -Foul Odor after Cleansing No -Anesthetic Used 4% Lidocaine Solution,5% Lidocaine Gel #1 DORSAL RIGHT FOOT -Combined with other wound No -Current Size (cm) - Length 3.7 -Current Size (cm) - Width 2.5 -Current Size (cm) - Depth 0.1 -Total Square Cm 9.25 -Tunneling No -Undermining/Tunneling No -Circular Undermining No -Exudate Amt Small -Exudate Type Serosanguineous -Wound Margin Flat & Intact -Granulation Amt Medium (34-66%) -Granulation Quality Gratis -Slough/Fibrin Yes -Necrosis Amt Small (1-33%) -Necrotic Tissue Type Adherent Slough -Structure Exposed N/A -Texture (Nicolasa-wound Skin Appearance) Assessed -Moisture (Nicolasa-wound Skin Appearance Assessed ) -Color (Nicolasa-wound Skin Appearance) Hemosiderin Staining -Temperature (Nicolasa-wound Skin No Abnormality Appearance) (Pt Warm) -Tenderness on Palpation (Nicolasa-wound No Skin Appearance) -Ulcer Cleansing Wound Cleanser -Foul Odor after Cleansing No -Anesthetic Used 4% Lidocaine Solution,5% Lidocaine Gel [Edema Assessment] -Lower Limb Edema Present Yes -Right Calf (cm) 42.2 -Right Ankle (cm) 24 -Left Calf (cm) 39.8 -Left Ankle (cm) 24.2 WC - Nurse 2 - General Ulcer CM Notes Start: 07/06/19 11:34 Freq: Status: Active Protocol: Activity Type Activity Date Activity User E-Sign Co-Sign Detail Recorded Client Recorded Date Recorded By Document 07/06/19 12:09 MW [id number] 07/06/19 12:18 MW 07/06/19 12:09 Wound Center Nurse 2 [Procedure/Treatment] #3 MEDIAL LLE -Time 12:09 -Correct Patient Yes -Correct Side, Site, Position Yes -Correct Procedure Yes -Procedure Performed Yes -Type of Procedure Debridement -Clinical Debridement Subcutaneous -Post Debridement Size (cm) - Length 4.0 -Post Debridement Size (cm) - Width 3.0 -Post Debridement Size (cm) - Depth 0.1 -Total Square Cm 12.00 -Wound/Ulcer Outcome Not Healed -Ulcer Cleansing Rinsed/ Irrigated with Saline -Foul Odor after Cleansing No -Bioengineered Tissue No -Bleeding Controlled with Pressure -Offloading No -Treatment Response Procedure Tolerated Well #2 LEFT MEDIAL ANKLE -Time 12:10 -Correct Patient Yes -Correct Side, Site, Position Yes -Correct Procedure Yes -Procedure Performed Yes -Type of Procedure Debridement -Clinical Debridement Subcutaneous -Post Debridement Size (cm) - Length 3.5 -Post Debridement Size (cm) - Width 2.0 -Post Debridement Size (cm) - Depth 0.1 -Total Square Cm 7.00 -Wound/Ulcer Outcome Not Healed -Ulcer Cleansing Rinsed/ Irrigated with Saline -Foul Odor after Cleansing No -Bioengineered Tissue No -Bleeding Controlled with Pressure -Offloading No -Treatment Response Procedure Tolerated Well #1 DORSAL RIGHT FOOT -Time 12:10 -Correct Patient Yes -Correct Side, Site, Position Yes -Correct Procedure Yes -Procedure Performed Yes -Type of Procedure Debridement -Clinical Debridement Subcutaneous -Post Debridement Size (cm) - Length 3.0 -Post Debridement Size (cm) - Width 2.7 -Post Debridement Size (cm) - Depth 0.1 -Total Square Cm 8.10 -Wound/Ulcer Outcome Not Healed -Ulcer Cleansing Rinsed/ Irrigated with Saline -Foul Odor after Cleansing No -Bioengineered Tissue No -Bleeding Controlled with Pressure -Offloading No -Treatment Response Procedure Tolerated Well [See Physician Procedure note for Specifics] Pain Scale: 0-10 Numeric [Pain] -Is Patient Pain Free? Yes Musculoskeletal: No Tenderness to Palpation of Joints or Extremities Lymphatic: No Cervical, Supraclavicular, or Inguinal Adenopathy Neurological: Cranial nerves II-XII grossly intact, Neuro grossly intact Psych/Mental Status: Normal Affect, Appropriate Debridement Note Post-Debridement Measurements/Treatment WC - Nurse 2 - General Ulcer CM Notes Start: 07/06/19 11:34 Freq: Status: Active Protocol: Activity Type Activity Date Activity User E-Sign Co-Sign Detail Recorded Client Recorded Date Recorded By Document 07/06/19 12:09 MW [id number] 07/06/19 12:18 MW 07/06/19 12:09 Wound Center Nurse 2 #3 MEDIAL LLE -Time 12:09 -Correct Patient Yes -Correct Side, Site, Position Yes -Correct Procedure Yes -Procedure Performed Yes -Type of Procedure Debridement -Clinical Debridement Subcutaneous -Post Debridement Size (cm) - Length 4.0 -Post Debridement Size (cm) - Width 3.0 -Post Debridement Size (cm) - Depth 0.1 -Total Square Cm 12.00 -Wound/Ulcer Outcome Not Healed -Ulcer Cleansing Rinsed/ Irrigated with Saline -Foul Odor after Cleansing No -Bioengineered Tissue No -Bleeding Controlled with Pressure -Offloading No -Treatment Response Procedure Tolerated Well #2 LEFT MEDIAL ANKLE -Time 12:10 -Correct Patient Yes -Correct Side, Site, Position Yes -Correct Procedure Yes -Procedure Performed Yes -Type of Procedure Debridement -Clinical Debridement Subcutaneous -Post Debridement Size (cm) - Length 3.5 -Post Debridement Size (cm) - Width 2.0 -Post Debridement Size (cm) - Depth 0.1 -Total Square Cm 7.00 -Wound/Ulcer Outcome Not Healed -Ulcer Cleansing Rinsed/ Irrigated with Saline -Foul Odor after Cleansing No -Bioengineered Tissue No -Bleeding Controlled with Pressure -Offloading No -Treatment Response Procedure Tolerated Well #1 DORSAL RIGHT FOOT -Time 12:10 -Correct Patient Yes -Correct Side, Site, Position Yes -Correct Procedure Yes -Procedure Performed Yes -Type of Procedure Debridement -Clinical Debridement Subcutaneous -Post Debridement Size (cm) - Length 3.0 -Post Debridement Size (cm) - Width 2.7 -Post Debridement Size (cm) - Depth 0.1 -Total Square Cm 8.10 -Wound/Ulcer Outcome Not Healed -Ulcer Cleansing Rinsed/ Irrigated with Saline -Foul Odor after Cleansing No -Bioengineered Tissue No -Bleeding Controlled with Pressure -Offloading No -Treatment Response Procedure Tolerated Well Pain Scale: 0-10 Numeric Is Patient Pain Free? Yes Wound debrided: Right dorsal foot Type of Debridement: Excisional debridement Anesthesia Used: 5% Lidocaine Gel Depth: Down to and including healthy tissue, in the subcutaneous layer Percentage of wound debrided: 100 Instrument Used: 7mm curette Tissue Removed: Devitalized tissue and fibrin and some slough Severity: Limited To Skin Breakdown Amount of bleeding with debridement: None Bleeding Controlled with: Pressure - Additional Wound Wound debrided: Left lower leg medial ankle Type of Debridement: Excisional debridement Anesthesia Used: 5% Lidocaine Gel Depth: Down to and including healthy tissue Percentage of wound debrided: 100 Instrument Used: 7mm curette Tissue Removed: Devitalized tissue and fibrin Severity: Limited To Skin Breakdown Amount of bleeding with debridement: None Bleeding Controlled with: Compression and gauze Patient tolerated procedure: Patient tolerated procedure well - Additional Wound Wound debrided: Left medial lower leg Type of Debridement: Excisional debridement Anesthesia Used: 5% Lidocaine Gel Depth: Down to and including healthy tissue, in the subcutaneous layer Percentage of wound debrided: 100 Instrument Used: 7mm curette Tissue Removed: Devitalized tissue and fibrin Assessment/Plan Active Problems Open wounds involving multiple regions of lower extremity (Acute) Infected open wound (Acute) Drug addiction (Acute) Peripheral vascular disease (Acute) Edema of both lower extremities due to peripheral venous insufficiency (Acute) Malignant hypertension (Acute) Assessment: Drug addiction skin popping. Abscesses left lower leg and upper leg from use. Right dorsal foot traumatic opening. Malignant hypertension. Poor hygiene Plan: Start scrubbing legs from knees to toes with antibacterial soap such as Dial. Apply Santyl to open areas cover with gauze Cassie and then double layer Tubigrip. Ordered AB studies and venous studies. Follow-up in 2 week
[2019-07-19 11:21] VITALS: BP 140/83; PULSE 87; RESP 18; TEMP 36.4; BMI 40.7
--- NOTE | 2019-07-19 12:44 | PCM.WC.PN ---
(1) Drug addiction Status: Acute Current Visit: Yes Code(s): F19.20 - Other psychoactive substance dependence, uncomplicated (2) Edema of both lower extremities due to peripheral venous insufficiency Status: Acute Current Visit: Yes Code(s): I87.2 - Venous insufficiency (chronic) (peripheral) (3) Infected open wound Status: Acute Current Visit: Yes Code(s): T14.8XXA - Other injury of unspecified body region, initial encounter; L08.9 - Local infection of the skin and subcutaneous tissue, unspecified (4) Malignant hypertension Status: Acute Current Visit: Yes Code(s): I10 - Essential (primary) hypertension (5) Open wounds involving multiple regions of lower extremity Status: Acute Current Visit: Yes Code(s): S81.809A - Unspecified open wound, unspecified lower leg, initial encounter (6) Peripheral vascular disease Status: Acute Current Visit: Yes Code(s): I73.9 - Peripheral vascular disease, unspecified Type of Wound Date of Service: 07/19/19 Chief Complaint: Follow-up bilateral lower legs History of Wound: Patient was seen in the emergency room at [facility] on 06 07 for a infection in her right dorsal foot she states from hitting a cabinet door that never closes. Questioned about her left leg from skin popping was positive approximately 5 months ago she has had these wounds for at least 6 months. Now she has infection from poor hygiene and not caring. She has a lot of edema in her lower extremities with stasis dermatitis. 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 Patient is currently on metoprolol 50 mg but has not done any follow-up. Patient is currently on Suboxone 8 mg a day for her drug addiction problems and states her last use was 5 months ago. Progress of Wound: The wounds both anterior lower extremities are smaller and more superficial. Patient has been scrubbing and using Santyl they look better. Patient has a poor tolerance to pain but is a drug addict and is unable to be medicated she is still in remission. Patient's blood pressure is still very high and was given an appointment with 1 of the family doctors for her medications. Her wounds have dramatically improved - Physical Exam Vital Signs Temp Pulse Resp BP 97.5 F L 87 18 140/83 H 07/19/19 11:21 07/19/19 11:21 07/19/19 11:21 07/19/19 11:21 General: Oriented x3, Cooperative, Well developed HEENT: Atraumatic, PERRLA Oral: Moist Mucosa Neck: Supple, No JVD Lungs: Clear to auscultation, Normal air movement Cardiovascular: Regular rate, Regular Rhythm Abdomen: Bowel Sounds Present, Soft, Non Tender, No Hepato-splenomegaly Extremities: No clubbing, No edema Skin: Ulcer/ Wound - Right dorsal foot left medial leg left medial ankle Wound Measurements and Assessment WC - Nurse 1 - General Ulcer Measurement Start: 07/06/19 11:34 Freq: Status: Active Protocol: Activity Type Activity Date Activity User E-Sign Co-Sign Detail Recorded Client Recorded Date Recorded By Document 07/19/19 11:21 [id number] 07/19/19 11:31 BS 07/19/19 11:21 Wound Center Nurse 1 [Ulcer Assessment] #3 MEDIAL LLE -Combined with other wound No -Current Size (cm) - Length 3 -Current Size (cm) - Width 2.7 -Current Size (cm) - Depth 0.1 -Total Square Cm 8.1 -Moisture (Nicolasa-wound Skin Appearance Assessed,Dry/ ) Scaly -Color (Nicolasa-wound Skin Appearance) Assessed, Hemosiderin Staining -Tenderness on Palpation (Nicolasa-wound Yes Skin Appearance) -Ulcer Cleansing Soap and water -Foul Odor after Cleansing No -Anesthetic Used 4% Lidocaine Solution #2 LEFT MEDIAL ANKLE -Combined with other wound No -Current Size (cm) - Length 3.2 -Current Size (cm) - Width 1.5 -Current Size (cm) - Depth 0.1 -Total Square Cm 4.80 -Moisture (Nicolasa-wound Skin Appearance Assessed,Dry/ ) Scaly -Color (Nicolasa-wound Skin Appearance) Assessed, Hemosiderin Staining -Tenderness on Palpation (Nicolasa-wound Yes Skin Appearance) -Ulcer Cleansing Soap and water -Anesthetic Used 4% Lidocaine Solution #1 DORSAL RIGHT FOOT -Combined with other wound No -Current Size (cm) - Length 3.4 -Current Size (cm) - Width 3 -Current Size (cm) - Depth 0.1 -Total Square Cm 10.2 -Moisture (Nicolasa-wound Skin Appearance Assessed,Dry/ ) Scaly -Color (Nicolasa-wound Skin Appearance) Assessed, Hemosiderin Staining -Ulcer Cleansing Soap and water -Anesthetic Used 4% Lidocaine Solution WC - Nurse 2 - General Ulcer CM Notes Start: 07/06/19 11:34 Freq: Status: Active Protocol: Activity Type Activity Date Activity User E-Sign Co-Sign Detail Recorded Client Recorded Date Recorded By Document 07/19/19 11:52 MW [id number] 07/19/19 12:04 MW 07/19/19 11:52 Wound Center Nurse 2 [Procedure/Treatment] #3 MEDIAL LLE -Time 11:54 -Correct Patient Yes -Correct Side, Site, Position Yes -Correct Procedure Yes -Procedure Performed Yes -Type of Procedure Debridement -Clinical Debridement Subcutaneous -Post Debridement Size (cm) - Length 2.8 -Post Debridement Size (cm) - Width 2.7 -Post Debridement Size (cm) - Depth 0.2 -Total Square Cm 7.56 -Wound/Ulcer Outcome Not Healed -Ulcer Cleansing Rinsed/ Irrigated with Saline -Foul Odor after Cleansing No -Bioengineered Tissue No -Bleeding Controlled with Pressure -Offloading No -Treatment Response Procedure Tolerated Well #2 LEFT MEDIAL ANKLE -Time 11:55 -Correct Patient Yes -Correct Side, Site, Position Yes -Correct Procedure Yes -Procedure Performed Yes -Type of Procedure Debridement -Clinical Debridement Subcutaneous -Post Debridement Size (cm) - Length 3.5 -Post Debridement Size (cm) - Width 1.7 -Post Debridement Size (cm) - Depth 0.1 -Total Square Cm 5.95 -Wound/Ulcer Outcome Not Healed -Ulcer Cleansing Rinsed/ Irrigated with Saline -Foul Odor after Cleansing No -Bioengineered Tissue No -Bleeding Controlled with Pressure -Offloading No -Treatment Response Procedure Tolerated Well #1 DORSAL RIGHT FOOT -Time 11:55 -Correct Patient Yes -Correct Side, Site, Position Yes -Correct Procedure Yes -Procedure Performed Yes -Type of Procedure Debridement -Clinical Debridement Subcutaneous -Post Debridement Size (cm) - Length 2.5 -Post Debridement Size (cm) - Width 2.5 -Post Debridement Size (cm) - Depth 0.1 -Total Square Cm 6.25 -Wound/Ulcer Outcome Not Healed -Ulcer Cleansing Rinsed/ Irrigated with Saline -Foul Odor after Cleansing No -Bioengineered Tissue No -Bleeding Controlled with Pressure -Offloading No -Treatment Response Procedure Tolerated Well [See Physician Procedure note for Specifics] Pain Scale: 0-10 Numeric [Pain] -Is Patient Pain Free? Yes Musculoskeletal: No Tenderness to Palpation of Joints or Extremities Lymphatic: No Cervical, Supraclavicular, or Inguinal Adenopathy Neurological: Cranial nerves II-XII grossly intact, Neuro grossly intact Psych/Mental Status: Normal Affect, Appropriate Debridement Note Post-Debridement Measurements/Treatment WC - Nurse 2 - General Ulcer CM Notes Start: 07/06/19 11:34 Freq: Status: Active Protocol: Activity Type Activity Date Activity User E-Sign Co-Sign Detail Recorded Client Recorded Date Recorded By Document 07/06/19 12:09 MW [id number] 07/06/19 12:18 MW Document 07/19/19 11:52 MW [id number] 07/19/19 12:04 MW 07/06/19 07/19/19 12:09 11:52 Wound Center Nurse 2 #3 MEDIAL LLE -Time 12:09 11:54 -Correct Patient Yes Yes -Correct Side, Site, Position Yes Yes -Correct Procedure Yes Yes -Procedure Performed Yes Yes -Type of Procedure Debridement Debridement -Clinical Debridement Subcutaneous Subcutaneous -Post Debridement Size (cm) - Length 4.0 2.8 -Post Debridement Size (cm) - Width 3.0 2.7 -Post Debridement Size (cm) - Depth 0.1 0.2 -Total Square Cm 12.00 7.56 -Wound/Ulcer Outcome Not Healed Not Healed -Ulcer Cleansing Rinsed/ Rinsed/ Irrigated with Irrigated with Saline Saline -Foul Odor after Cleansing No No -Bioengineered Tissue No No -Bleeding Controlled with Pressure Pressure -Offloading No No -Treatment Response Procedure Procedure Tolerated Well Tolerated Well #2 LEFT MEDIAL ANKLE -Time 12:10 11:55 -Correct Patient Yes Yes -Correct Side, Site, Position Yes Yes -Correct Procedure Yes Yes -Procedure Performed Yes Yes -Type of Procedure Debridement Debridement -Clinical Debridement Subcutaneous Subcutaneous -Post Debridement Size (cm) - Length 3.5 3.5 -Post Debridement Size (cm) - Width 2.0 1.7 -Post Debridement Size (cm) - Depth 0.1 0.1 -Total Square Cm 7.00 5.95 -Wound/Ulcer Outcome Not Healed Not Healed -Ulcer Cleansing Rinsed/ Rinsed/ Irrigated with Irrigated with Saline Saline -Foul Odor after Cleansing No No -Bioengineered Tissue No No -Bleeding Controlled with Pressure Pressure -Offloading No No -Treatment Response Procedure Procedure Tolerated Well Tolerated Well #1 DORSAL RIGHT FOOT -Time 12:10 11:55 -Correct Patient Yes Yes -Correct Side, Site, Position Yes Yes -Correct Procedure Yes Yes -Procedure Performed Yes Yes -Type of Procedure Debridement Debridement -Clinical Debridement Subcutaneous Subcutaneous -Post Debridement Size (cm) - Length 3.0 2.5 -Post Debridement Size (cm) - Width 2.7 2.5 -Post Debridement Size (cm) - Depth 0.1 0.1 -Total Square Cm 8.10 6.25 -Wound/Ulcer Outcome Not Healed Not Healed -Ulcer Cleansing Rinsed/ Rinsed/ Irrigated with Irrigated with Saline Saline -Foul Odor after Cleansing No No -Bioengineered Tissue No No -Bleeding Controlled with Pressure Pressure -Offloading No No -Treatment Response Procedure Procedure Tolerated Well Tolerated Well Pain Scale: 0-10 Numeric Is Patient Pain Free? Yes Yes Wound debrided: Right dorsal foot Type of Debridement: Excisional debridement Anesthesia Used: 5% Lidocaine Gel Depth: Down to and including healthy tissue, in the subcutaneous layer Instrument Used: 7mm curette Tissue Removed: Devitalized tissue fibrin and slough Severity: Fat Layer Exposed Amount of bleeding with debridement: Mild Bleeding Controlled with: Compression and gauze Patient tolerated procedure well - Additional Wound Wound debrided: Left medial leg Type of Debridement: Excisional debridement Anesthesia Used: 5% Lidocaine Gel Depth: Down to and including healthy tissue, in the subcutaneous layer Percentage of wound debrided: 100 Instrument Used: 7mm curette, - - Scissors Tissue Removed: Fibrin devitalized tissue Severity: Limited To Skin Breakdown Amount of bleeding with debridement: Mild Bleeding Controlled with: Compression and gauze - Additional Wound Wound debrided: Left medial ankle Type of Debridement: Excisional debridement Anesthesia Used: 5% Lidocaine Gel Depth: Down to and including healthy tissue Percentage of wound debrided: 100 Instrument Used: 7mm curette Tissue Removed: Fibrin and devitalized tissue Severity: Limited To Skin Breakdown Patient tolerated procedure: Patient tolerated procedure well Assessment/Plan Active Problems Open wounds involving multiple regions of lower extremity (Acute) Infected open wound (Acute) Drug addiction (Acute) Peripheral vascular disease (Acute) Edema of both lower extremities due to peripheral venous insufficiency (Acute) Malignant hypertension (Acute) Assessment: Drug addiction skin popping. Abscesses left lower leg and upper leg from use. Right dorsal foot traumatic opening. Malignant hypertension. Poor hygiene Plan: Start scrubbing legs from knees to toes with antibacterial soap such as Dial. Apply Santyl to right dorsal foot left medial leg and apply Promogran to left medial ankle cover with Adaptic and gauze dressings daily. ordered AB studies and venous studies be done August 02. Follow-up in 1 week
[2019-08-02 11:34] VITALS: BP 148/92; PULSE 107; RESP 16; TEMP 35.8; BMI 40.7
--- NOTE | 2019-08-02 12:24 | PN.PCM_ITS ---
(1) Drug addiction Status: Acute Current Visit: Yes Code(s): F19.20 - Other psychoactive substa nce dependence, uncomplicated (2) Edema of both lower extremities due to peripheral venous insufficiency Status: Acute Current Visit: Yes Code(s): I87.2 - Venous insufficiency (chronic) (peripheral) (3) Infected open wound Status: Acute Current Visit: Yes Code(s): T14.8XXA - Other injury of unspecified body region, initial encounter; L08.9 - Local infection of the skin and subcutaneous tissue, unspecified (4) Malignant hypertension Status: Acute Current Visit: Yes Code(s): I10 - Essential (primary) hyperten pam (5) Open wounds involving multiple regions of lower extremity Status: Acute Current Visit: Yes Code(s): S81.809A - Unspecified open wound, unspecified lower leg, initial encounter (6) Peripheral vascular disease Status: Acute Current Visit: Yes Code(s): I73.9 - Peripheral vascular disease, unspecified Type of Wound Date of Service: 08/02/19 Chief Complaint: Follow-up bilateral lower legs History of Wound: Patient was seen in the emergency room at [facility] on 06 07 for a infection in her right dorsal foot she states from hitting a cabinet door that never closes. Questioned about her left leg from skin popping was positive approximately 5 months ago she has had these wounds for at least 6 months. Now she has infection from poor hygiene and not caring. She has a lot of edema in her lower extremities with stasis dermatitis. 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 Patient is currently on metoprolol 50 mg but has not done any follow- up. Patient is currently on Suboxone 8 mg a day for her drug addiction problems and states her last use was 5 months ago. Progress of Wound: The wounds both anterior lower extremities are smaller and more superficial. Patient has been scrubbing and using Santyl they look better. Patient has a poor tolerance to pain but is a drug addict and is unable to be medicated she is still in remission. Patient's blood pressure is still very high and was given an appointment with 1 of the family doctors for her medications. Her wounds have dramatically improved - Physical Exam Vital Signs Temp Pulse Resp BP 96.4 F L 107 H 16 148/92 H 08/02/19 11:34 08/02/19 11:34 08/02/19 11:34 08/02/19 11:34 General: Oriented x3, Cooperative, Well developed HEENT: Atraumatic, PERRLA Oral: Moist Mucosa Neck: Supple, No JVD Lungs: Clear to auscultation, Normal air movement Cardiovascular: Regular rate, Regular Rhythm Abdomen: Bowel Sounds Present, Soft, Non Tender, No Hepato-splenomegaly Extremities: No clubbing, No edema Skin: Ulcer/ Wound - Superficial areas on left upper lower leg and left ankle area and right dorsal foot Wound Measurements and Assessment WC - Nurse 1 - General Ulcer Measurement Start: 07/06/19 11:34 Freq: Status: Active Protocol: Activity Type Activity Date Activity User E-Sign Co-Sign Detail Recorded Client Recorded Date Recorded By Document 08/02/19 11:34 [facility] [id number] 08/02/19 11:47 [facility] 08/02/19 11:34 Wound Center Nurse 1 [Ulcer Assessment] #3 MEDIAL LLE -Combined with other wound No -Current Size (cm) - Length 2.2 -Current Size (cm) - Width 2.3 -Current Size (cm) - Depth 0.1 -Total Square Cm 5.06 -Photo Taken No -Epithelialization Small 1-33% -Tunneling No -Undermining/Tunneling No -Circular Undermining No -Exudate Amt Small -Exudate Type Serosanguineous -Wound Margin Distinct, Outline Attached -Granulation Amt Medium (34-66%) -Granulation Quality Red -Slough/Fibrin Yes -Necrosis Amt Medium (34-66%) -Necrotic Tissue Type Adherent Slough -Texture (Nicolasa-wound Skin Appearance) Assessed, Scarring -Moisture (Nicolasa-wound Skin Appearance Assessed,Dry/ ) Scaly -Color (Nicolasa-wound Skin Appearance) Assessed, Hemosiderin Staining -Temperature (Nicolasa-wound Skin No Abnormality Appearance) (Pt Warm) -Tenderness on Palpation (Nicolasa-wound Yes Skin Appearance) -Ulcer Cleansing Rinsed/ Irrigated with Saline -Foul Odor after Cleansing No -Anesthetic Used 4% Lidocaine Solution #2 LEFT MEDIAL ANKLE -Combined with other wound No -Current Size (cm) - Length 3 -Current Size (cm) - Width 2.3 -Current Size (cm) - Depth 0.1 -Total Square Cm 6.9 -Photo Taken No -Epithelialization Small 1-33% -Tunneling No -Undermining/Tunneling No -Circular Undermining No -Exudate Amt Small -Exudate Type Serosanguineous -Wound Margin Distinct, Outline Attached -Granulation Amt Small (1-33%) -Granulation Quality Red -Slough/Fibrin Yes -Necrosis Amt Medium (34-66%) -Necrotic Tissue Type Adherent Slough -Texture (Nicolasa-wound Skin Appearance) Assessed, Scarring -Moisture (Nicolasa-wound Skin Appearance Assessed,Dry/ ) Scaly -Color (Nicolasa-wound Skin Appearance) Assessed, Hemosiderin Staining -Temperature (Nicolasa-wound Skin No Abnormality Appearance) (Pt Warm) -Tenderness on Palpation (Nicolasa-wound No Skin Appearance) -Ulcer Cleansing Rinsed/ Irrigated with Saline -Foul Odor after Cleansing No -Anesthetic Used 4% Lidocaine Solution #1 DORSAL RIGHT FOOT -Combined with other wound No -Current Size (cm) - Length 2.6 -Current Size (cm) - Width 1.8 -Current Size (cm) - Depth 0.1 -Total Square Cm 4.68 -Photo Taken No -Epithelialization Small 1-33% -Tunneling No -Undermining/Tunneling No -Circular Undermining No -Exudate Amt Small -Exudate Type Serosanguineous -Wound Margin Flat & Intact -Granulation Amt Medium (34-66%) -Granulation Quality Red -Slough/Fibrin Yes -Necrosis Amt Medium (34-66%) -Necrotic Tissue Type Adherent Slough -Texture (Nicolasa-wound Skin Appearance) Assessed, Scarring -Moisture (Nicolasa-wound Skin Appearance Assessed,Dry/ ) Scaly -Color (Nicolasa-wound Skin Appearance) Assessed, Hemosiderin Staining -Temperature (Nicolasa-wound Skin No Abnormality Appearance) (Pt Warm) -Tenderness on Palpation (Nicolasa-wound No Skin Appearance) -Ulcer Cleansing Rinsed/ Irrigated with Saline -Foul Odor after Cleansing No -Anesthetic Used 4% Lidocaine Solution [Edema Assessment] -Lower Limb Edema Present Yes -Right Calf (cm) 39.6 -Right Ankle (cm) 23.5 -Left Calf (cm) 37.6 -Left Ankle (cm) 23.4 WC - Nurse 2 - General Ulcer CM Notes Start: 07/06/19 11:34 Freq: Status: Active Protocol: Activity Type Activity Date Activity User E-Sign Co-Sign Detail Recorded Client Recorded Date Recorded By Document 08/02/19 12:04 MW [id number] 08/02/19 12:10 MW 08/02/19 12:04 Wound Center Nurse 2 [Procedure/Treatment] #3 MEDIAL LLE -Time 12:05 -Correct Patient Yes -Correct Side, Site, Position Yes -Correct Procedure Yes -Procedure Performed Yes -Type of Procedure Debridement -Clinical Debridement Subcutaneous -Post Debridement Size (cm) - Length 2.4 -Post Debridement Size (cm) - Width 2.5 -Post Debridement Size (cm) - Depth 0.1 -Total Square Cm 6.00 -Wound/Ulcer Outcome Not Healed -Ulcer Cleansing Rinsed/ Irrigated with Saline -Foul Odor after Cleansing No -Bioengineered Tissue No -Bleeding Controlled with Pressure -Offloading No -Treatment Response Procedure Tolerated Well #2 LEFT MEDIAL ANKLE -Time 12:08 -Correct Patient Yes -Correct Side, Site, Position Yes -Correct Procedure Yes -Procedure Performed Yes -Type of Procedure Debridement -Clinical Debridement Subcutaneous -Post Debridement Size (cm) - Length 1.0 -Post Debridement Size (cm) - Width 1.5 -Post Debridement Size (cm) - Depth 0.1 -Total Square Cm 1.50 -Wound/Ulcer Outcome Not Healed -Ulcer Cleansing Rinsed/ Irrigated with Saline -Foul Odor after Cleansing No -Bioengineered Tissue No -Bleeding Controlled with Pressure -Offloading No -Treatment Response Procedure Tolerated Well #1 DORSAL RIGHT FOOT -Time 12:08 -Correct Patient Yes -Correct Side, Site, Position Yes -Correct Procedure Yes -Procedure Performed Yes -Type of Procedure Debridement -Clinical Debridement Subcutaneous -Post Debridement Size (cm) - Length 2.2 -Post Debridement Size (cm) - Width 2.2 -Post Debridement Size (cm) - Depth 0.1 -Total Square Cm 4.84 -Wound/Ulcer Outcome Not Healed -Ulcer Cleansing Rinsed/ Irrigated with Saline -Foul Odor after Cleansing No -Bioengineered Tissue No -Bleeding Controlled with Pressure -Offloading No -Treatment Response Procedure Tolerated Well [See Physician Procedure note for Specifics] Pain Scale: 0-10 Numeric [Pain] -Is Patient Pain Free? Yes Musculoskeletal: No Tenderness to Palpation of Joints or Extremities Lymphatic: No Cervical, Supraclavicular, or Inguinal Adenopathy Neurological: Cranial nerves II-XII grossly intact, Neuro grossly intact Psych/Mental Status: Normal Affect, Appropriate Debridement Note Post-Debridement Measurements/Treatment WC - Nurse 2 - General Ulcer CM Notes Start: 07/06/19 11:34 Freq: Status: Active Protocol: Activity Type Activity Date Activity User E-Sign Co-Sign Detail Recorded Client Recorded Date Recorded By Document 07/06/19 12:09 MW [id number] 07/06/19 12:18 MW Document 07/19/19 11:52 MW [id number] 07/19/19 12:04 MW Document 08/02/19 12:04 MW [id number] 08/02/19 12:10 MW 07/06/19 07/19/19 08/02/19 12:09 11:52 12:04 Wound Center Nurse 2 #3 MEDIAL LLE -Time 12:09 11:54 12:05 -Correct Patient Yes Yes Yes -Correct Side, Site, Position Yes Yes Yes -Correct Procedure Yes Yes Yes -Procedure Performed Yes Yes Yes -Type of Procedure Debridement Debridement Debridement -Clinical Debridement Subcutaneous Subcutaneous Subcutaneous -Post Debridement Size (cm) - Length 4.0 2.8 2.4 -Post Debridement Size (cm) - Width 3.0 2.7 2.5 -Post Debridement Size (cm) - Depth 0.1 0.2 0.1 -Total Square Cm 12.00 7.56 6.00 -Wound/Ulcer Outcome Not Healed Not Healed Not Healed -Ulcer Cleansing Rinsed/ Rinsed/ Rinsed/ Irrigated with Irrigated with Irrigated with Saline Saline Saline -Foul Odor after Cleansing No No No -Bioengineered Tissue No No No -Bleeding Controlled with Pressure Pressure Pressure -Offloading No No No -Treatment Response Procedure Procedure Procedure Tolerated Well Tolerated Well Tolerated Well #2 LEFT MEDIAL ANKLE -Time 12:10 11:55 12:08 -Correct Patient Yes Yes Yes -Correct Side, Site, Position Yes Yes Yes -Correct Procedure Yes Yes Yes -Procedure Performed Yes Yes Yes -Type of Procedure Debridement Debridement Debridement -Clinical Debridement Subcutaneous Subcutaneous Subcutaneous -Post Debridement Size (cm) - Length 3.5 3.5 1.0 -Post Debridement Size (cm) - Width 2.0 1.7 1.5 -Post Debridement Size (cm) - Depth 0.1 0.1 0.1 -Total Square Cm 7.00 5.95 1.50 -Wound/Ulcer Outcome Not Healed Not Healed Not Healed -Ulcer Cleansing Rinsed/ Rinsed/ Rinsed/ Irrigated with Irrigated with Irrigated with Saline Saline Saline -Foul Odor after Cleansing No No No -Bioengineered Tissue No No No -Bleeding Controlled with Pressure Pressure Pressure -Offloading No No No -Treatment Response Procedure Procedure Procedure Tolerated Well Tolerated Well Tolerated Well #1 DORSAL RIGHT FOOT -Time 12:10 11:55 12:08 -Correct Patient Yes Yes Yes -Correct Side, Site, Position Yes Yes Yes -Correct Procedure Yes Yes Yes -Procedure Performed Yes Yes Yes -Type of Procedure Debridement Debridement Debridement -Clinical Debridement Subcutaneous Subcutaneous Subcutaneous -Post Debridement Size (cm) - Length 3.0 2.5 2.2 -Post Debridement Size (cm) - Width 2.7 2.5 2.2 -Post Debridement Size (cm) - Depth 0.1 0.1 0.1 -Total Square Cm 8.10 6.25 4.84 -Wound/Ulcer Outcome Not Healed Not Healed Not Healed -Ulcer Cleansing Rinsed/ Rinsed/ Rinsed/ Irrigated with Irrigated with Irrigated with Saline Saline Saline -Foul Odor after Cleansing No No No -Bioengineered Tissue No No No -Bleeding Controlled with Pressure Pressure Pressure -Offloading No No No -Treatment Response Procedure Procedure Procedure Tolerated Well Tolerated Well Tolerated Well Pain Scale: 0-10 Numeric Is Patient Pain Free? Yes Yes Yes Wound debrided: Left upper lower leg Type of Debridement: Excisional debridement Anesthesia Used: 4% Lidocaine Solution, 5% Lidocaine Gel Depth: Down to and including healthy tissue Percentage of wound debrided: 100 Instrument Used: 7mm curette Tissue Removed: Fibrin and devitalized tissue Severity: Limited To Skin Breakdown Amount of bleeding with debridement: None Bleeding Controlled with: Pressure Patient tolerated procedure well - Additional Wound Wound debrided: Left medial ankle cluster Type of Debridement: Excisional debridement Anesthesia Used: 5% Lidocaine Gel Depth: Down to and including healthy tissue Percentage of wound debrided: 100 Instrument Used: 5mm curette Tissue Removed: fibrin Severity: Limited To Skin Breakdown Amount of bleeding with debridement: Mild Bleeding Controlled with: Compression and gauze Patient tolerated procedure: Patient tolerated procedure well - Additional Wound Wound debrided: Right dorsal foot Type of Debridement: Excisional debridement Anesthesia Used: 5% Lidocaine Gel Depth: Down to and including healthy tissue Percentage of wound debrided: 100 Instrument Used: 5mm curette Tissue Removed: fibrin Amount of bleeding with debridement: Mild Bleeding Controlled with: Pressure Patient tolerated procedure: Patient tolerated procedure well Assessment/Plan Active Problems Open wounds involving multiple regions of lower extremity (Acute) Infected open wound (Acute) Drug addiction (Acute) Peripheral vascular disease (Acute) Edema of both lower extremities due to peripheral venous insufficiency (Acute) Malignant hypertension (Acute) Assessment: Drug addiction skin popping. Abscesses left lower leg and upper leg from use. Right dorsal foot traumatic opening. Malignant hypertension. Poor hygiene Plan: Start scrubbing legs from knees to toes with antibacterial soap such as Dial. stop the Santyl to right dorsal foot left medial leg and apply Promogran to all areas cover with Adaptic and gauze dressings daily. ordered AB studies and venous studies be done August 02. Follow-up in 1 week
== END 2019-08-04 23:59 ==
LOC: WC 11:00
PROVIDERS: Family Provider Family Medicine; PCP Family Medicine; Visit Provider Nurse Practitioner
DX: S90.811A Abrasion, right foot, initial encounter (principal); W22.09XA Striking against other stationary object, initial encounter; I10 Essential (primary) hypertension; I73.9 Peripheral vascular disease, unspecified; I87.2 Venous insufficiency (chronic) (peripheral); F19.20 Other psychoactive substance dependence, uncomplicated; S90.512A Abrasion, left ankle, initial encounter; S80.812A Abrasion, left lower leg, initial encounter; L02.416 Cutaneous abscess of left lower limb
CPT/HCPCS: 11042; 11045

== ENCOUNTER 2019-08-31 14:30 | Outpatient (RCR) | payer BC, SELFPAY ==
[2019-08-05 00:56] VITALS: BP 148/92; PULSE 107; RESP 16; TEMP 35.8
--- NOTE | 2019-08-09 13:45 | VDLE_ITS ---
Reason For Study: BLE EDEMA RIGHT LEFT CFV is compressible, spontaneous, phasic, CFV is compressible, spontaneous, phasic, competent and demonstrates normal competent, and demonstrates normal augmentation. augmentation. FV is compressible, spontaneous, phasic, FV is compressible, spontaneous, phasic, competent and demonstrates normal competent and demonstrates normal augmentation. augmentation. POP V is compressible, spontaneous, phasic, POP V is compressible, spontaneous, phasic, competent and demonstrates normal competent and demonstrates normal augmentation. augmentation. T/P Trunk is compressible. T/P Trunk is compressible. PTV is compressible. PTV is compressible. RT PerV is compressible. LT PerV is compressible. SFJ is competent and measures 0.87 x 0.93 cm. SFJ is competent and measures 0.70 x 0.72 cm. GSV proximal thigh measures 0.47 x 0.47 cm. GSV proximal thigh measures 0.45 x 0.42 cm. GSV at knee measures 0.45 x 0.37 cm. GSV at knee measures 0.48 x 0.55 cm. GSV INCOMPETENT throughout for greater than GSV INCOMPETENT throughout for greater than 0.5 seconds. 0.5 seconds. SSV proximal calf is competent and measures SSV proximal calf is competent and measures 0.41 x 0.46 cm. 0.42 x 0.48 cm. Procedure Exam performed in department. The exam was diagnostic. Interpretation Summary Deep veins of the lower extremities are bilaterally patent and compressible segmentally. There is no evidence of deep vein thrombosis on either side. Valvular competence appears intact within the proximal deep venous systems bilaterally. The great saphenous veins appear bilaterally patent and compressible segmentally. Sapheno-femoral junctions are bilaterally competent . Segmental valvular incompetence is noted within the great saphenous veins bilaterally. Small saphenous veins are patent and competent bilaterally. Ordering Physician: Ericka Sampson Referring Physician: Stanislaw Florian Performed By: Sydney Chase, MARGO, RVT
[2019-08-31 15:19] VITALS: BP 132/84; PULSE 93; RESP 18; TEMP 36.2; BMI 40.7
--- NOTE | 2019-08-31 16:57 | PN.PCM_ITS ---
(1) Venous stasis ulcer of left lower extremity Status: Acute Current Visit: Yes Code(s): I83.029 - Varicose veins of left lower extremity with ulcer of unspecified site; L97.929 - Non-pressure chronic ulcer of unspecified part of left lower leg with unspecified severity (2) PVD (peripheral vascular disease) Status: Acute Current Visit: Yes Code(s): I73.9 - Peripheral vascular disease, unspecified (3) Venous ulcer of right lower extremity with varicose veins Status: Acute Current Visit: Yes Code(s): I83.019 - Varicose veins of right lower extremity with ulcer of unspecified site; L97.919 - Non-pressure chronic ulcer of unspecified part of right lower leg with unspecified severity (4) Drug addiction Status: Acute Current Visit: No Code(s): F19.20 - Other psychoactive substance dependence, uncomplicated (5) Edema of both lower extremities due to peripheral venous insufficiency Status: Acute Current Visit: No Code(s): I87.2 - Venous insufficiency (chronic) (peripheral) (6) Infected open wound Status: Acute Current Visit: No Code(s): T14.8XXA - Other injury of unspecified body region, initial encounter; L08.9 - Local infection of the skin and subcutaneous tissue, unspecified Type of Wound Date of Service: 08/31/19 Chief Complaint: Follow-up bilateral lower legs History of Wound: Patient was seen in the emergency room at [facility] on 06/07 for a infection in her right dorsal foot she states from hitting a cabinet door that never closes. Questioned about her left leg from skin popping was positive approximately 5 months ago she has had these wounds for at least 6 months. Now she has infection from poor hygiene and not caring. She has a lot of edema in her lower extremities with stasis dermatitis. 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 Patient is currently on metoprolol 50 mg but has not done any follow- up. Patient is currently on Suboxone 8 mg a day for her drug addiction problems and states her last use was 5 months ago. Progress of Wound: The patient's wounds are larger. Her care will be transferred to myself due to scheduling conflict. Patient has not followed up in a couple weeks. Patient has been scrubbing and using Santyl. Patient has a poor tolerance to pain but is a drug addict and is unable to be medicated she is still in remission. Patient's blood pressure is still very high and was given an appointment with 1 of the family doctors for her medications. Vascular resul ts were reviewed with her and showed normal ABIs and bilateral venous insufficiency. - Physical Exam Vital Signs Temp Pulse Resp BP 97.1 F L 93 18 132/84 H 08/31/19 15:19 08/31/19 15:19 08/31/19 15:19 08/31/19 15:19 General: Alert, Oriented x3, Cooperative, No apparent distress HEENT: Atraumatic Oral: Moist Mucosa Lungs: Clear to auscultation, Normal air movement Cardiovascular: Regular rate Abdomen: Soft, Non Tender Extremities: No clubbing, No cyanosis, Edema - +1 bilateral lower extremity edema, Peripheral Pulses Normal, - - Hemosiderin staining present bilateral lower extremities Skin: Ulcer/ Wound - See nursing documentation, slough and devitalized tissue present and ulcerations without any signs of obvious infection at this time Wound Measurements and Assessment WC - Nurse 1 - General Ulcer Measurement Start: 08/17/19 09:42 Freq: Status: Active Protocol: Activity Type Activity Date Activity User E-Sign Co-Sign Detail Recorded Client Recorded Date Recorded By Document 08/31/19 15:19 RB [id number] 08/31/19 15:24 RB 08/31/19 15:19 Wound Center Nurse 1 [Ulcer Assessment] #3 MEDIAL LLE -Combined with other wound No -Current Size (cm) - Length 1.7 -Current Size (cm) - Width 2 -Current Size (cm) - Depth 0.1 -Total Square Cm 3.4 -Tunneling No -Undermining/Tunneling No -Circular Undermining No -Exudate Amt Small -Exudate Type Serosanguineous -Wound Margin Flat & Intact -Granulation Amt Medium (34-66%) -Granulation Quality [place],Red -Slough/Fibrin Yes -Necrosis Amt Medium (34-66%) -Necrotic Tissue Type Adherent Slough -Structure Exposed Fat Layer Exposed -Texture (Nicolasa-wound Skin Appearance) Assessed -Moisture (Nicolasa-wound Skin Appearance Dry/Scaly ) -Color (Nicolasa-wound Skin Appearance) Assessed -Temperature (Nicolasa-wound Skin No Abnormality Appearance) (Pt Warm) -Tenderness on Palpation (Nicolasa-wound No Skin Appearance) -Ulcer Cleansing Wound Cleanser -Foul Odor after Cleansing No -Anesthetic Used 4% Lidocaine Solution #2 LEFT MEDIAL ANKLE -Combined with other wound No -Current Size (cm) - Length 1 -Current Size (cm) - Width 1.4 -Current Size (cm) - Depth 0.1 -Total Square Cm 1.4 -Tunneling No -Undermining/Tunneling No -Circular Undermining No -Exudate Amt Small -Exudate Type Serosanguineous -Wound Margin Flat & Intact -Granulation Amt Medium (34-66%) -Granulation Quality [place] -Slough/Fibrin Yes -Necrosis Amt Small (1-33%) -Necrotic Tissue Type Adherent Slough -Structure Exposed N/A -Texture (Nicolasa-wound Skin Appearance) Assessed -Moisture (Nicolasa-wound Skin Appearance Dry/Scaly ) -Color (Nicolasa-wound Skin Appearance) Assessed -Temperature (Nicolasa-wound Skin No Abnormality Appearance) (Pt Warm) -Tenderness on Palpation (Nicolasa-wound No Skin Appearance) -Ulcer Cleansing Wound Cleanser -Foul Odor after Cleansing No -Anesthetic Used 4% Lidocaine Solution #1 DORSAL RIGHT FOOT -Combined with other wound No -Current Size (cm) - Length 1.7 -Current Size (cm) - Width 1.9 -Current Size (cm) - Depth 0.1 -Total Square Cm 3.23 -Tunneling No -Undermining/Tunneling No -Circular Undermining No -Exudate Amt Small -Exudate Type Serosanguineous -Wound Margin Flat & Intact -Granulation Amt Medium (34-66%) -Granulation Quality [place] -Slough/Fibrin Yes -Necrosis Amt Small (1-33%) -Necrotic Tissue Type Adherent Slough -Structure Exposed N/A -Texture (Nicolasa-wound Skin Appearance) Assessed -Moisture (Nicolasa-wound Skin Appearance Dry/Scaly ) -Color (Nicolasa-wound Skin Appearance) Assessed -Temperature (Nicolasa-wound Skin No Abnormality Appearance) (Pt Warm) -Tenderness on Palpation (Nicolasa-wound No Skin Appearance) -Ulcer Cleansing Wound Cleanser -Foul Odor after Cleansing No -Anesthetic Used 4% Lidocaine Solution [Edema Assessment] -Lower Limb Edema Present Yes -Right Calf (cm) 42 -Right Ankle (cm) 23 -Left Calf (cm) 38.8 -Left Ankle (cm) 23 WC - Nurse 2 - General Ulcer CM Notes Start: 08/17/19 09:42 Freq: Status: Active Protocol: Activity Type Activity Date Activity User E-Sign Co-Sign Detail Recorded Client Recorded Date Recorded By Document 08/31/19 15:52 MW [id number] 08/31/19 15:59 MW 08/31/19 15:52 Wound Center Nurse 2 [Procedure/Treatment] #3 MEDIAL LLE -Time 15:53 -Correct Patient Yes -Correct Side, Site, Position Yes -Correct Procedure Yes -Procedure Performed Yes -Type of Procedure Debridement -Clinical Debridement Subcutaneous -Post Debridement Size (cm) - Length 3.5 -Post Debridement Size (cm) - Width 2.5 -Post Debridement Size (cm) - Depth 0.1 -Total Square Cm 8.75 -Wound/Ulcer Outcome Not Healed -Ulcer Cleansing Rinsed/ Irrigated with Saline -Foul Odor after Cleansing No -Bioengineered Tissue No -Bleeding Controlled with Pressure -Offloading No -Treatment Response Procedure Tolerated Well #2 LEFT MEDIAL ANKLE -Time 15:53 -Correct Patient Yes -Correct Side, Site, Position Yes -Correct Procedure Yes -Procedure Performed Yes -Type of Procedure Debridement -Clinical Debridement Subcutaneous -Post Debridement Size (cm) - Length 1.5 -Post Debridement Size (cm) - Width 1.5 -Post Debridement Size (cm) - Depth 0.1 -Total Square Cm 2.25 -Wound/Ulcer Outcome Not Healed -Ulcer Cleansing Rinsed/ Irrigated with Saline -Foul Odor after Cleansing No -Bioengineered Tissue No -Bleeding Controlled with Pressure -Offloading No -Treatment Response Procedure Tolerated Well #1 DORSAL RIGHT FOOT -Time 15:53 -Correct Patient Yes -Correct Side, Site, Position Yes -Correct Procedure Yes -Procedure Performed Yes -Type of Procedure Debridement -Clinical Debridement Subcutaneous -Post Debridement Size (cm) - Length 2.5 -Post Debridement Size (cm) - Width 2.2 -Post Debridement Size (cm) - Depth 0.1 -Total Square Cm 5.50 -Wound/Ulcer Outcome Not Healed -Ulcer Cleansing Rinsed/ Irrigated with Saline -Foul Odor after Cleansing No -Bioengineered Tissue No -Bleeding Controlled with Pressure -Offloading No -Treatment Response Procedure Tolerated Well [See Physician Procedure note for Specifics] Pain Scale: 0-10 Numeric [Pain] -Is Patient Pain Free? Yes Neurological: Neuro grossly intact Psych/Mental Status: Normal Affect, Appropriate, Alert and oriented to time, place, person, mood and affect Debridement Note Post-Debridement Measurements/Treatment WC - Nurse 2 - General Ulcer CM Notes Start: 08/17/19 09:42 Freq: Status: Active Protocol: Activity Type Activity Date Activity User E-Sign Co-Sign Detail Recorded Client Recorded Date Recorded By Document 08/31/19 15:52 MW [id number] 08/31/19 15:59 MW 08/31/19 15:52 Wound Center Nurse 2 #3 MEDIAL LLE -Time 15:53 -Correct Patient Yes -Correct Side, Site, Position Yes -Correct Procedure Yes -Procedure Performed Yes -Type of Procedure Debridement -Clinical Debridement Subcutaneous -Post Debridement Size (cm) - Length 3.5 -Post Debridement Size (cm) - Width 2.5 -Post Debridement Size (cm) - Depth 0.1 -Total Square Cm 8.75 -Wound/Ulcer Outcome Not Healed -Ulcer Cleansing Rinsed/ Irrigated with Saline -Foul Odor after Cleansing No -Bioengineered Tissue No -Bleeding Controlled with Pressure -Offloading No -Treatment Response Procedure Tolerated Well #2 LEFT MEDIAL ANKLE -Time 15:53 -Correct Patient Yes -Correct Side, Site, Position Yes -Correct Procedure Yes -Procedure Performed Yes -Type of Procedure Debridement -Clinical Debridement Subcutaneous -Post Debridement Size (cm) - Length 1.5 -Post Debridement Size (cm) - Width 1.5 -Post Debridement Size (cm) - Depth 0.1 -Total Square Cm 2.25 -Wound/Ulcer Outcome Not Healed -Ulcer Cleansing Rinsed/ Irrigated with Saline -Foul Odor after Cleansing No -Bioengineered Tissue No -Bleeding Controlled with Pressure -Offloading No -Treatment Response Procedure Tolerated Well #1 DORSAL RIGHT FOOT -Time 15:53 -Correct Patient Yes -Correct Side, Site, Position Yes -Correct Procedure Yes -Procedure Performed Yes -Type of Procedure Debridement -Clinical Debridement Subcutaneous -Post Debridement Size (cm) - Length 2.5 -Post Debridement Size (cm) - Width 2.2 -Post Debridement Size (cm) - Depth 0.1 -Total Square Cm 5.50 -Wound/Ulcer Outcome Not Healed -Ulcer Cleansing Rinsed/ Irrigated with Saline -Foul Odor after Cleansing No -Bioengineered Tissue No -Bleeding Controlled with Pressure -Offloading No -Treatment Response Procedure Tolerated Well Pain Scale: 0-10 Numeric Is Patient Pain Free? Yes Wound debrided: BiLateral lower extremity venous leg ulcers Type of Debridement: Excisional debridement Anesthesia Used: 5% Lidocaine Gel Depth: in the subcutaneous layer Percentage of wound debrided: 100 Instrument Used: 5mm curette Tissue Removed: Slough and devitalized tissue Severity: Fat Layer Exposed Amount of bleeding with debridement: Mild Bleeding Controlled with: Pressure Patient tolerated procedure well Assessment/Plan Active Problems PVD (peripheral vascular disease) (Acute) Venous ulcer of right lower extremity with varicose veins (Acute) Venous stasis ulcer of left lower extremity (Acute) Assessment: Drug addiction skin popping. Abscesses left lower leg and upper leg from use. Right dorsal foot traumatic opening. Malignant hypertension. Poor hygiene Plan: The patient was seen and examined at the wound center today and was updated on the plan of care. A subcutaneous debridement was performed today. The patient tolerated the procedure well. The patients wound care will consist of: Application of silver cell to all wounds with 3M wraps for compression. Vascular studies reviewed and showed normal ABIs and showed bilateral venous insufficiency. Patient educated on the importance of diet on wound healing and instructed to increase protein and vitamin C intake. Patient verbalized understanding. Patient will follow up at wound healing center in one week or sooner if needed. This note was generated with [employer] dictation software. It may contain incorrect words, spelling, and punctuation that were not noted in checking the note before signing. Code Visit Office Visits / Consults: [id number] OV L3 Est 111xxx-113xx: [id number] Aditi subq tissue 20 sq cm/<
== END 2019-09-02 23:59 ==
LOC: WC 14:30
PROVIDERS: Family Provider Family Medicine; PCP Family Medicine; Referring Provider Nurse Practitioner; Visit Provider Nurse Practitioner
DX: I83.018 Varicose veins of right lower extremity with ulcer other part of lower leg (principal); I83.028 Varicose veins of left lower extremity with ulcer other part of lower leg; L97.812 Non-pressure chronic ulcer of other part of right lower leg with fat layer exposed; L97.822 Non-pressure chronic ulcer of other part of left lower leg with fat layer exposed; I10 Essential (primary) hypertension; L02.416 Cutaneous abscess of left lower limb; R60.0 Localized edema; I87.2 Venous insufficiency (chronic) (peripheral); L08.9 Local infection of the skin and subcutaneous tissue, unspecified; Z79.891 Long term (current) use of opiate analgesic; F19.21 Other psychoactive substance dependence, in remission; I73.9 Peripheral vascular disease, unspecified
CPT/HCPCS: 11042; 29581; 93923; 93970

== ENCOUNTER 2019-09-28 14:30 | Outpatient (RCR) | payer BC, SELFPAY ==
[2019-09-03 00:42] VITALS: BP 132/84; PULSE 93; RESP 18; TEMP 36.2
[2019-09-07 15:08] VITALS: BP 147/80; PULSE 119; RESP 18; TEMP 36.1; BMI 40.7
--- NOTE | 2019-09-07 18:05 | PCM.WC.PN ---
(1) Venous stasis ulcer of left lower extremity Status: Acute Code(s): I83.029 - Varicose veins of left lower extremity with ulcer of unspecified site; L97.929 - Non-pressure chronic ulcer of unspecified part of left lower leg with unspecified severity (2) PVD (peripheral vascular disease) Status: Acute Code(s): I73.9 - Peripheral vascular disease, unspecified (3) Drug addiction Status: Acute Code(s): F19.20 - Other psychoactive substance dependence, uncomplicated (4) Edema of both lower extremities due to peripheral venous insufficiency Status: Acute Code(s): I87.2 - Venous insufficiency (chronic) (peripheral) (5) Venous ulcer of right lower extremity with varicose veins Status: Acute Code(s): I83.019 - Varicose veins of right lower extremity with ulcer of unspecified site; L97.919 - Non-pressure chronic ulcer of unspecified part of right lower leg with unspecified severity Type of Wound Date of Service: 09/07/19 Chief Complaint: Follow-up bilateral lower legs History of Wound: Patient was seen in the emergency room at [facility] on 06/07 for a infection in her right dorsal foot she states from hitting a cabinet door that never closes. Questioned about her left leg from skin popping was positive approximately 5 months ago she has had these wounds for at least 6 months. Now she has infection from poor hygiene and not caring. She has a lot of edema in her lower extremities with stasis dermatitis. 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 Patient is currently on metoprolol 50 mg but has not done any follow-up. Patient is currently on Suboxone 8 mg a day for her drug addiction problems and states her last use was 5 months ago. Progress of Wound: The patient's wounds are stable. Patient did well with the 3M's for compression. No new concerns. Vascular results were reviewed with her and showed normal ABIs and bilateral venous insufficiency. - Physical Exam Vital Signs Temp Pulse Resp BP 97.0 F L 119 H 18 147/80 H 09/07/19 15:08 09/07/19 15:08 09/07/19 15:08 09/07/19 15:08 General: Alert, Oriented x3, Cooperative, No apparent distress HEENT: Atraumatic Neck: Supple Lungs: Clear to auscultation, Normal air movement Cardiovascular: Regular rate, Regular Rhythm Abdomen: Soft Extremities: No clubbing, No cyanosis, Edema - Bilateral lower extremity edema with chronic venous changes hemosiderin staining bilaterally Skin: Ulcer/ Wound - See nursing documentation, slough and devitalized tissue present, no signs of obvious infection at this time Neurological: Neuro grossly intact Psych/Mental Status: Normal Affect, Appropriate, Alert and oriented to time, place, person, mood and affect Debridement Note Post-Debridement Measurements/Treatment WC - Nurse 2 - General Ulcer CM Notes Start: 09/07/19 15:07 Freq: Status: Active Protocol: Activity Type Activity Date Activity User E-Sign Co-Sign Detail Recorded Client Recorded Date Recorded By Document 09/07/19 15:30 MW [id number] 09/07/19 15:43 MW 09/07/19 15:30 Wound Center Nurse 2 #3 MEDIAL LLE -Time 15:30 -Correct Patient Yes -Correct Side, Site, Position Yes -Correct Procedure Yes -Procedure Performed Yes -Type of Procedure Debridement -Clinical Debridement Subcutaneous -Post Debridement Size (cm) - Length 2.4 -Post Debridement Size (cm) - Width 2.4 -Post Debridement Size (cm) - Depth 0.1 -Total Square Cm 5.76 -Wound/Ulcer Outcome Not Healed -Ulcer Cleansing Rinsed/ Irrigated with Saline -Foul Odor after Cleansing No -Bioengineered Tissue Yes -Type of bioengineered Tissue Apligraf -Expiration Date 09/16/19 -Product Lot Number [id number] -Percent Used 100 -Saline Lot Number [id number] -Bleeding Controlled with Pressure -Offloading No -Treatment Response Procedure Tolerated Well #2 LEFT MEDIAL ANKLE -Time 15:32 -Correct Patient Yes -Correct Side, Site, Position Yes -Correct Procedure Yes -Procedure Performed Yes -Type of Procedure Debridement -Clinical Debridement Subcutaneous -Post Debridement Size (cm) - Length 1.0 -Post Debridement Size (cm) - Width 1.5 -Post Debridement Size (cm) - Depth 0.1 -Total Square Cm 1.50 -Wound/Ulcer Outcome Not Healed -Ulcer Cleansing Rinsed/ Irrigated with Saline -Foul Odor after Cleansing No -Bioengineered Tissue Yes -Type of bioengineered Tissue Apligraf -Expiration Date 09/16/19 -Product Lot Number [id number] -Percent Used 100 -Saline Lot Number [id number] -Bleeding Controlled with Pressure -Offloading No -Treatment Response Procedure Tolerated Well #1 DORSAL RIGHT FOOT -Time 15:32 -Correct Patient Yes -Correct Side, Site, Position Yes -Correct Procedure Yes -Procedure Performed Yes -Type of Procedure Debridement -Clinical Debridement Subcutaneous -Post Debridement Size (cm) - Length 2.9 -Post Debridement Size (cm) - Width 1.9 -Post Debridement Size (cm) - Depth 0.1 -Total Square Cm 5.51 -Wound/Ulcer Outcome Not Healed -Ulcer Cleansing Rinsed/ Irrigated with Saline -Foul Odor after Cleansing No -Bioengineered Tissue Yes -Type of bioengineered Tissue Apligraf -Expiration Date 09/16/19 -Product Lot Number [id number] -Percent Used 100 -Saline Lot Number [id number] -Bleeding Controlled with Pressure -Offloading No -Treatment Response Procedure Tolerated Well Pain Scale: 0-10 Numeric Is Patient Pain Free? Yes Wound debrided: Bilateral lower extremity venous leg ulcers Type of Debridement: Excisional debridement Anesthesia Used: 5% Lidocaine Gel Depth: in the subcutaneous layer Percentage of wound debrided: 100 Instrument Used: 5mm curette Tissue Removed: Slough and devitalized tissue Severity: Fat Layer Exposed Amount of bleeding with debridement: Mild Bleeding Controlled with: Pressure Patient tolerated procedure well Assessment/Plan Assessment: Drug addiction skin popping. Abscesses left lower leg and upper leg from use. Right dorsal foot traumatic opening. Malignant hypertension. Poor hygiene Plan: The patient was seen and examined at the wound center today and was updated on the plan of care. A subcutaneous debridement was performed today. The patient tolerated the procedure well. The patients wound care will consist of: Application of Apligraf to all venous leg ulcers, secured with Adaptic touch and Steri-Strips, 100% utilized with 3M wraps for compression. Vascular studies reviewed and showed normal ABIs and showed bilateral venous insufficiency. Patient educated on the importance of diet on wound healing and instructed to increase protein and vitamin C intake. Patient verbalized understanding. Patient will follow up at wound healing center in one week or sooner if needed. This note was generated with [employer] software. It may contain incorrect words, spelling, and punctuation that were not noted in checking the note before signing. [id number]: [id number] Skin sub graft trnk/arm/leg
[2019-09-14 11:44] VITALS: BP 116/66; PULSE 91; RESP 18; TEMP 35.9; BMI 40.7
--- NOTE | 2019-09-14 11:46 | WC ---
pt apligraf intact per 3 wounds and adaptic touch left inplace and no measurement took today
--- NOTE | 2019-09-14 15:11 | PCM.WC.PN ---
(1) Venous stasis ulcer of left lower extremity Status: Acute Current Visit: Yes Code(s): I83.029 - Varicose veins of left lower extremity with ulcer of unspecified site; L97.929 - Non-pressure chronic ulcer of unspecified part of left lower leg with unspecified severity (2) PVD (peripheral vascular disease) Status: Acute Current Visit: Yes Code(s): I73.9 - Peripheral vascular disease, unspecified (3) Drug addiction Status: Acute Current Visit: Yes Code(s): F19.20 - Other psychoactive substance dependence, uncomplicated (4) Edema of both lower extremities due to peripheral venous insufficiency Status: Acute Current Visit: Yes Code(s): I87.2 - Venous insufficiency (chronic) (peripheral) (5) Venous ulcer of right lower extremity with varicose veins Status: Acute Current Visit: Yes Code(s): I83.019 - Varicose veins of right lower extremity with ulcer of unspecified site; L97.919 - Non-pressure chronic ulcer of unspecified part of right lower leg with unspecified severity Type of Wound Date of Service: 09/14/19 Chief Complaint: Follow-up bilateral lower legs History of Wound: Patient was seen in the emergency room at [facility] on 06/07 for a infection in her right dorsal foot she states from hitting a cabinet door that never closes. Questioned about her left leg from skin popping was positive approximately 5 months ago she has had these wounds for at least 6 months. Now she has infection from poor hygiene and not caring. She has a lot of edema in her lower extremities with stasis dermatitis. 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 Patient is currently on metoprolol 50 mg but has not done any follow-up. Patient is currently on Suboxone 8 mg a day for her drug addiction problems and states her last use was 5 months ago. Progress of Wound: The patient's wounds are stable. Patient did well with the 3M's for compression. Apligraf in place. No new concerns. Vascular results were reviewed with her and showed normal ABIs and bilateral venous insufficiency. - Physical Exam Vital Signs Temp Pulse Resp BP 96.7 F L 91 18 116/66 09/14/19 11:44 09/14/19 11:44 09/14/19 11:44 09/14/19 11:44 General: Alert, Oriented x3, Cooperative, No apparent distress HEENT: Atraumatic Oral: Moist Mucosa Lungs: Clear to auscultation, Normal air movement Cardiovascular: Regular rate, Regular Rhythm Abdomen: Soft, Non Tender Extremities: No clubbing, No cyanosis, Edema - Generalized bilateral lower extremity edema with chronic venous changes present bilateral hemosiderin staining Skin: Ulcer/ Wound - No obvious signs of infection at this time, Apligraf in place Wound Measurements and Assessment WC - Nurse 1 - General Ulcer Measurement Start: 09/07/19 15:07 Freq: Status: Active Protocol: Activity Type Activity Date Activity User E-Sign Co-Sign Detail Recorded Client Recorded Date Recorded By Document 09/14/19 11:44 RB [id number] 09/14/19 11:47 RB 09/14/19 11:44 Wound Center Nurse 1 [Ulcer Assessment] #3 MEDIAL LLE -Combined with other wound No [Edema Assessment] -Lower Limb Edema Present Yes -Right Calf (cm) 39.5 -Right Ankle (cm) 23.5 -Left Calf (cm) 38.5 -Left Ankle (cm) 24 09/14/19 11:46 Wound Center by Roslyn Hough pt apligraf intact per 3 wounds and adaptic touch left inplace and no measurement took today Initialized on 09/14/19 11:46 - END OF NOTE - Nurse 2 - General Ulcer CM Notes Start: 09/07/19 15:07 Freq: Status: Active Protocol: Activity Type Activity Date Activity User E-Sign Co-Sign Detail Recorded Client Recorded Date Recorded By Document 09/14/19 12:19 JOJO [id number] 09/14/19 12:20 JOJO 09/14/19 12:19 Wound Center Nurse 2 [Procedure/Treatment] #3 MEDIAL LLE -Correct Patient No -Correct Side, Site, Position No -Correct Procedure No -Procedure Performed No -Wound/Ulcer Outcome Not Healed #2 LEFT MEDIAL ANKLE -Correct Patient No -Correct Side, Site, Position No -Correct Procedure No -Procedure Performed No -Wound/Ulcer Outcome Not Healed #1 DORSAL RIGHT FOOT -Correct Patient No -Correct Side, Site, Position No -Correct Procedure No -Procedure Performed No -Wound/Ulcer Outcome Not Healed [See Physician Procedure note for Specifics] Pain Scale: 0-10 Numeric [Pain] -Is Patient Pain Free? Yes Neurological: Neuro grossly intact Psych/Mental Status: Normal Affect, Appropriate, Alert and oriented to time, place, person, mood and affect Debridement Note Post-Debridement Measurements/Treatment WC - Nurse 2 - General Ulcer CM Notes Start: 09/07/19 15:07 Freq: Status: Active Protocol: Activity Type Activity Date Activity User E-Sign Co-Sign Detail Recorded Client Recorded Date Recorded By Document 09/07/19 15:30 MW [id number] 09/07/19 15:43 MW Document 09/14/19 12:19 JF [id number] 09/14/19 12:20 JF 09/07/19 09/14/19 15:30 12:19 Wound Center Nurse 2 #3 MEDIAL LLE -Time 15:30 -Correct Patient Yes No -Correct Side, Site, Position Yes No -Correct Procedure Yes No -Procedure Performed Yes No -Type of Procedure Debridement -Clinical Debridement Subcutaneous -Post Debridement Size (cm) - Length 2.4 -Post Debridement Size (cm) - Width 2.4 -Post Debridement Size (cm) - Depth 0.1 -Total Square Cm 5.76 -Wound/Ulcer Outcome Not Healed Not Healed -Ulcer Cleansing Rinsed/ Irrigated with Saline -Foul Odor after Cleansing No -Bioengineered Tissue Yes -Type of bioengineered Tissue Apligraf -Expiration Date 09/16/19 -Product Lot Number [id number] -Percent Used 100 -Saline Lot Number [id number] -Bleeding Controlled with Pressure -Offloading No -Treatment Response Procedure Tolerated Well #2 LEFT MEDIAL ANKLE -Time 15:32 -Correct Patient Yes No -Correct Side, Site, Position Yes No -Correct Procedure Yes No -Procedure Performed Yes No -Type of Procedure Debridement -Clinical Debridement Subcutaneous -Post Debridement Size (cm) - Length 1.0 -Post Debridement Size (cm) - Width 1.5 -Post Debridement Size (cm) - Depth 0.1 -Total Square Cm 1.50 -Wound/Ulcer Outcome Not Healed Not Healed -Ulcer Cleansing Rinsed/ Irrigated with Saline -Foul Odor after Cleansing No -Bioengineered Tissue Yes -Type of bioengineered Tissue Apligraf -Expiration Date 09/16/19 -Product Lot Number [id number] -Percent Used 100 -Saline Lot Number [id number] -Bleeding Controlled with Pressure -Offloading No -Treatment Response Procedure Tolerated Well #1 DORSAL RIGHT FOOT -Time 15:32 -Correct Patient Yes No -Correct Side, Site, Position Yes No -Correct Procedure Yes No -Procedure Performed Yes No -Type of Procedure Debridement -Clinical Debridement Subcutaneous -Post Debridement Size (cm) - Length 2.9 -Post Debridement Size (cm) - Width 1.9 -Post Debridement Size (cm) - Depth 0.1 -Total Square Cm 5.51 -Wound/Ulcer Outcome Not Healed Not Healed -Ulcer Cleansing Rinsed/ Irrigated with Saline -Foul Odor after Cleansing No -Bioengineered Tissue Yes -Type of bioengineered Tissue Apligraf -Expiration Date 09/16/19 -Product Lot Number [id number] -Percent Used 100 -Saline Lot Number [id number] -Bleeding Controlled with Pressure -Offloading No -Treatment Response Procedure Tolerated Well Pain Scale: 0-10 Numeric Is Patient Pain Free? Yes Yes No debridement was completed today Assessment/Plan Active Problems Drug addiction (Acute) Edema of both lower extremities due to peripheral venous insufficiency (Acute) PVD (peripheral vascular disease) (Acute) Venous ulcer of right lower extremity with varicose veins (Acute) Venous stasis ulcer of left lower extremity (Acute) Assessment: Drug addiction skin popping. Abscesses left lower leg and upper leg from use. Right dorsal foot traumatic opening. Malignant hypertension. Poor hygiene Plan: The patient was seen and examined at the wound center today and was updated on the plan of care. A subcutaneous debridement was performed today. The patient tolerated the procedure well. The patients wound care will consist of:Apligraf in place, cover with Aquacel extra for excess drainage with 3M wraps for compression. Vascular studies reviewed and showed normal ABIs and showed bilateral venous insufficiency. Patient educated on the importance of diet on wound healing and instructed to increase protein and vitamin C intake. Patient verbalized understanding. Patient will follow up at wound healing center in one week or sooner if needed. This note was generated with milog dictation software. It may contain incorrect words, spelling, and punctuation that were not noted in checking the note before signing. Office Visits / Consults: [id number] [facility]
[2019-09-21 15:14] VITALS: BP 119/70; PULSE 84; RESP 16; TEMP 36.5; O2SAT 84; BMI 40.7
--- NOTE | 2019-09-21 16:03 | PN.PCM_ITS ---
(1) Venous stasis ulcer of left lower extremity Status: Acute Current Visit: Yes Code(s): I83.029 - Varicose veins of left lower extremity with ulcer of unspecified site; L97.929 - Non-pressure chronic ulcer of unspecified part of left lower leg with unspecified severity (2) PVD (peripheral vascular disease) Status: Acute Current Visit: Yes Code(s): I73.9 - Peripheral vascular disease, unspecified (3) Drug addiction Status: Acute Current Visit: Yes Code(s): F19.20 - Other psychoactive substance dependence, uncomplicated (4) Edema of both lower extremities due to peripheral venous insufficiency Status: Acute Current Visit: Yes Code(s): I87.2 - Venous insufficiency (chronic) (peripheral) (5) Venous ulcer of right lower extremity with varicose veins Status: Acute Current Visit: Yes Code(s): I83.019 - Varicose veins of right lower extremity with ulcer of unspecified site; L97.919 - Non-pressure chronic ulcer of unspecified part of right lower leg with unspecified severity Type of Wound Date of Service: 09/21/19 Chief Complaint: Follow-up bilateral lower legs History of Wound: Patient was seen in the emergency room at [facility] on 06/07 for a infection in her right dorsal foot she states from hitting a cabinet door that never closes. Questioned about her left leg from skin popping was positive approximately 5 months ago she has had these wounds for at least 6 months. Now she has infection from poor hygiene and not caring. She has a lot of edema in her lower extremities with stasis dermatitis. 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 Patient is currently on metoprolol 50 mg but has not done any follow- up. Patient is currently on Suboxone 8 mg a day for her drug addiction problems and states her last use was 5 months ago. Progress of Wound: The patient's wounds are stable. Patient did well with the 3M's for compression and Apligraf, however, notes increase in pain to ulcers, specifically right foot ulcer. Vascular results were reviewed with her and showed normal ABIs and bilateral venous insufficiency. - Physical Exam Vital Signs Temp Pulse Resp BP Pulse Ox 97.7 F L 84 16 119/70 84 09/21/19 15:14 09/21/19 15:14 09/21/19 15:14 09/21/19 15:14 09/21/19 15:14 General: Alert, Oriented x3, Cooperative, No apparent distress HEENT: Atraumatic Oral: Moist Mucosa Lungs: Clear to auscultation, Normal air movement Cardiovascular: Regular rate Abdomen: Soft Extremities: No clubbing, No cyanosis, No edema Skin: Ulcer/ Wound - See nursing documentation, slough and devitalized tissue present, right foot wound with erythema, no purulent drainage noted at this time Wound Measurements and Assessment WC - Nurse 1 - General Ulcer Measurement Start: 09/07/19 15:07 Freq: Status: Active Protocol: Activity Type Activity Date Activity User E-Sign Co-Sign Detail Recorded Client Recorded Date Recorded By Document 09/21/19 15:14 DV [id number] 09/21/19 15:37 DV 09/21/19 15:14 Wound Center Nurse 1 [Ulcer Assessment] #3 MEDIAL LLE -Combined with other wound No -Current Size (cm) - Length 2.2 -Current Size (cm) - Width 1.2 -Current Size (cm) - Depth 0.1 -Total Square Cm 2.64 -Photo Taken No -Epithelialization None Present -Tunneling No -Undermining/Tunneling No -Circular Undermining No -Classification - Thickness Full Thickness without Exposed Support Structure -Exudate Amt Large -Exudate Type Serosanguineous -Wound Margin Indistinct, Non -Visible -Granulation Amt None Present (0 %) -Granulation Quality N/A -Slough/Fibrin Yes -Necrosis Amt Large (67-100%) -Necrotic Tissue Type Adherent Slough -Structure Exposed None/Limited to Skin Breakdown -Texture (Nicolasa-wound Skin Appearance) Assessed, Scarring -Moisture (Nicolasa-wound Skin Appearance Assessed, ) Weeping -Color (Nicolasa-wound Skin Appearance) No Abnormality, Assessed -Foul Odor after Cleansing No -Anesthetic Used 4% Lidocaine Solution,5% Lidocaine Gel #2 LEFT MEDIAL ANKLE -Combined with other wound No -Current Size (cm) - Length 1.0 -Current Size (cm) - Width 1.5 -Current Size (cm) - Depth 0.1 -Total Square Cm 1.50 -Photo Taken No -Epithelialization None Present -Tunneling No -Undermining/Tunneling No -Circular Undermining No -Classification - Thickness Full Thickness without Exposed Support Structure -Exudate Amt Medium -Exudate Type Serosanguineous -Wound Margin Flat & Intact -Granulation Amt None Present (0 %) -Granulation Quality N/A -Slough/Fibrin Yes -Necrosis Amt Large (67-100%) -Necrotic Tissue Type Adherent Slough -Structure Exposed N/A -Texture (Nicolasa-wound Skin Appearance) Assessed, Scarring -Moisture (Nicolasa-wound Skin Appearance Assessed, ) Weeping -Color (Nicolasa-wound Skin Appearance) No Abnormality, Assessed -Temperature (Nicolasa-wound Skin No Abnormality Appearance) (Pt Warm) -Tenderness on Palpation (Nicolasa-wound No Skin Appearance) -Foul Odor after Cleansing No -Anesthetic Used 5% Lidocaine Gel #1 DORSAL RIGHT FOOT -Combined with other wound No -Current Size (cm) - Length 2.3 -Current Size (cm) - Width 1.8 -Current Size (cm) - Depth 0.1 -Total Square Cm 4.14 -Photo Taken No -Epithelialization None Present -Tunneling No -Undermining/Tunneling No -Circular Undermining No -Classification - Thickness Full Thickness without Exposed Support Structure -Exudate Amt Medium -Exudate Type Serosanguineous -Wound Margin Flat & Intact -Granulation Amt None Present (0 %) -Granulation Quality N/A -Slough/Fibrin Yes -Necrosis Amt Large (67-100%) -Necrotic Tissue Type Adherent Slough -Structure Exposed None/Limited to Skin Breakdown -Texture (Nicolasa-wound Skin Appearance) Assessed -Color (Nicolasa-wound Skin Appearance) Assessed -Temperature (Nicolasa-wound Skin No Abnormality Appearance) (Pt Warm) -Tenderness on Palpation (Nicolasa-wound Yes Skin Appearance) -Foul Odor after Cleansing No -Anesthetic Used 5% Lidocaine Gel WC - Nurse 2 - General Ulcer CM Notes Start: 09/07/19 15:07 Freq: Status: Active Protocol: Activity Type Activity Date Activity User E-Sign Co-Sign Detail Recorded Client Recorded Date Recorded By Document 09/21/19 15:39 MW [id number] 09/21/19 15:52 MW 09/21/19 15:39 Wound Center Nurse 2 [Procedure/Treatment] #3 [facility] L[facility] -Time 15:39 -Correct Patient Yes -Correct Side, Site, Position Yes -Correct Procedure Yes -Procedure Performed Yes -Type of Procedure Debridement -Clinical Debridement Subcutaneous -Post Debridement Size (cm) - Length 2.2 -Post Debridement Size (cm) - Width 1.8 -Post Debridement Size (cm) - Depth 0.1 -Total Square Cm 3.96 -Wound/Ulcer Outcome Not Healed -Ulcer Cleansing Rinsed/ Irrigated with Saline -Foul Odor after Cleansing No -Bioengineered Tissue No -Bleeding Controlled with Pressure -Offloading No -Treatment Response Procedure Tolerated Well #2 LEFT MEDIAL ANKLE -Time 15:48 -Correct Patient Yes -Correct Side, Site, Position Yes -Correct Procedure Yes -Procedure Performed Yes -Type of Procedure Debridement -Clinical Debridement Subcutaneous -Post Debridement Size (cm) - Length 1.0 -Post Debridement Size (cm) - Width 1.4 -Post Debridement Size (cm) - Depth 0.1 -Total Square Cm 1.40 -Wound/Ulcer Outcome Not Healed -Ulcer Cleansing Rinsed/ Irrigated with Saline -Foul Odor after Cleansing No -Bioengineered Tissue No -Bleeding Controlled with Pressure -Offloading No -Treatment Response Procedure Tolerated Well #1 DORSAL RIGHT FOOT -Time 15:48 -Correct Patient Yes -Correct Side, Site, Position Yes -Correct Procedure Yes -Procedure Performed Yes -Type of Procedure Debridement -Clinical Debridement Subcutaneous -Post Debridement Size (cm) - Length 3.0 -Post Debridement Size (cm) - Width 2.4 -Post Debridement Size (cm) - Depth 0.1 -Total Square Cm 7.20 -Wound/Ulcer Outcome Not Healed -Ulcer Cleansing Rinsed/ Irrigated with Saline -Foul Odor after Cleansing No -Bioengineered Tissue No -Bleeding Controlled with Pressure -Offloading No -Treatment Response Procedure Tolerated Well [See Physician Procedure note for Specifics] Pain Scale: 0-10 Numeric [Pain] -Is Patient Pain Free? Yes Neurological: Neuro grossly intact Psych/Mental Status: Normal Affect, Appropriate, Alert and oriented to time, place, person, mood and affect Debridement Note Post-Debridement Measurements/Treatment WC - Nurse 2 - General Ulcer CM Notes Start: 09/07/19 15:07 Freq: Status: Active Protocol: Activity Type Activity Date Activity User E-Sign Co-Sign Detail Recorded Client Recorded Date Recorded By Document 09/07/19 15:30 MW [id number] 09/07/19 15:43 MW Document 09/14/19 12:19 JF [id number] 09/14/19 12:20 JF Document 09/21/19 15:39 MW [id number] 09/21/19 15:52 MW 09/07/19 09/14/19 09/21/19 15:30 12:19 15:39 Wound Center Nurse 2 #3 MEDIAL LLE -Time 15:30 15:39 -Correct Patient Yes No Yes -Correct Side, Site, Position Yes No Yes -Correct Procedure Yes No Yes -Procedure Performed Yes No Yes -Type of Procedure Debridement Debridement -Clinical Debridement Subcutaneous Subcutaneous -Post Debridement Size (cm) - Length 2.4 2.2 -Post Debridement Size (cm) - Width 2.4 1.8 -Post Debridement Size (cm) - Depth 0.1 0.1 -Total Square Cm 5.76 3.96 -Wound/Ulcer Outcome Not Healed Not Healed Not Healed -Ulcer Cleansing Rinsed/ Rinsed/ Irrigated with Irrigated with Saline Saline -Foul Odor after Cleansing No No -Bioengineered Tissue Yes No -Type of bioengineered Tissue Apligraf -Expiration Date 09/16/19 -Product Lot Number [id number] -Percent Used 100 -Saline Lot Number [id number] -Bleeding Controlled with Pressure Pressure -Offloading No No -Treatment Response Procedure Procedure Tolerated Well Tolerated Well #2 LEFT MEDIAL ANKLE -Time 15:32 15:48 -Correct Patient Yes No Yes -Correct Side, Site, Position Yes No Yes -Correct Procedure Yes No Yes -Procedure Performed Yes No Yes -Type of Procedure Debridement Debridement -Clinical Debridement Subcutaneous Subcutaneous -Post Debridement Size (cm) - Length 1.0 1.0 -Post Debridement Size (cm) - Width 1.5 1.4 -Post Debridement Size (cm) - Depth 0.1 0.1 -Total Square Cm 1.50 1.40 -Wound/Ulcer Outcome Not Healed Not Healed Not Healed -Ulcer Cleansing Rinsed/ Rinsed/ Irrigated with Irrigated with Saline Saline -Foul Odor after Cleansing No No -Bioengineered Tissue Yes No -Type of bioengineered Tissue Apligraf -Expiration Date 09/16/19 -Product Lot Number [id number] -Percent Used 100 -Saline Lot Number [id number] -Bleeding Controlled with Pressure Pressure -Offloading No No -Treatment Response Procedure Procedure Tolerated Well Tolerated Well #1 DORSAL RIGHT FOOT -Time 15:32 15:48 -Correct Patient Yes No Yes -Correct Side, Site, Position Yes No Yes -Correct Procedure Yes No Yes -Procedure Performed Yes No Yes -Type of Procedure Debridement Debridement -Clinical Debridement Subcutaneous Subcutaneous -Post Debridement Size (cm) - Length 2.9 3.0 -Post Debridement Size (cm) - Width 1.9 2.4 -Post Debridement Size (cm) - Depth 0.1 0.1 -Total Square Cm 5.51 7.20 -Wound/Ulcer Outcome Not Healed Not Healed Not Healed -Ulcer Cleansing Rinsed/ Rinsed/ Irrigated with Irrigated with Saline Saline -Foul Odor after Cleansing No No -Bioengineered Tissue Yes No -Type of bioengineered Tissue Apligraf -Expiration Date 09/16/19 -Product Lot Number [id number] -Percent Used 100 -Saline Lot Number [id number] -Bleeding Controlled with Pressure Pressure -Offloading No No -Treatment Response Procedure Procedure Tolerated Well Tolerated Well Pain Scale: 0-10 Numeric Is Patient Pain Free? Yes Yes Yes Wound debrided: Right and left chronic venous leg ulcers Type of Debridement: Excisional debridement Anesthesia Used: 5% Lidocaine Gel Depth: in the subcutaneous layer Percentage of wound debrided: 100 Instrument Used: 5mm curette Tissue Removed: Slough and devitalized tissue Severity: Fat Layer Exposed Amount of bleeding with debridement: Mild Bleeding Controlled with: Pressure Patient tolerated procedure well Assessment/Plan Active Problems Drug addiction (Acute) Edema of both lower extremities due to peripheral venous insufficiency (Acute) PVD (peripheral vascular disease) (Acute) Venous ulcer of right lower extremity with varicose veins (Acute) Venous stasis ulcer of left lower extremity (Acute) Assessment: Drug addiction skin popping. Abscesses left lower leg and upper leg from use. Right dorsal foot traumatic opening. Malignant hypertension. Poor hygiene Plan: The patient was seen and examined at the wound center today and was updated on the plan of care. A subcutaneous debridement was performed today. The patient tolerated the procedure well. The patients wound care will consist of:ulcers to be covered with nonadherant silvercell with 3M wraps for compression, hold apligraf due to concern for infection, wound cultures collected. Vascular studies reviewed and showed normal ABIs and showed bilateral venous insufficiency. Patient educated on the importance of diet on wound healing and instructed to increase protein and vitamin C intake. Patient verbalized understanding. Patient will follow up at wound healing center in one week or sooner if needed. This note was generated with [employer]ation software. It may contain incorrect words, spelling, and punctuation that were not noted in checking the note before signing. [id number]: [id number] Aditi subq tissue 20 sq cm/<
[2019-09-28 14:37] VITALS: BP 137/87; PULSE 118; RESP 16; TEMP 36.4; BMI 40.7
--- NOTE | 2019-09-28 20:32 | PN.PCM_ITS ---
(1) Venous stasis ulcer of left lower extremity Status: Acute Current Visit: Yes Code(s): I83.029 - Varicose veins of left lower extremity with ulcer of unspecified site; L97.929 - Non-pressure chronic ulcer of unspecified part of left lower leg with unspecified severity (2) PVD (peripheral vascular disease) Status: Acute Current Visit: Yes Code(s): I73.9 - Peripheral vascular disease, unspecified (3) Drug addiction Status: Acute Current Visit: Yes Code(s): F19.20 - Other psychoactive substance dependence, uncomplicated (4) Edema of both lower extremities due to peripheral venous insufficiency Status: Acute Current Visit: Yes Code(s): I87.2 - Venous insufficiency (chronic) (peripheral) (5) Venous ulcer of right lower extremity with varicose veins Status: Acute Current Visit: Yes Code(s): I83.019 - Varicose veins of right lower extremity with ulcer of unspecified site; L97.919 - Non-pressure chronic ulcer of unspecified part of right lower leg with unspecified severity Type of Wound Date of Service: 09/28/19 Chief Complaint: Follow-up bilateral lower legs History of Wound: Patient was seen in the emergency room at [facility] on 06/07 for a infection in her right dorsal foot she states from hitting a cabinet door that never closes. Questioned about her left leg from skin popping was positive approximately 5 months ago she has had these wounds for at least 6 months. Now she has infection from poor hygiene and not caring. She has a lot of edema in her lower extremities with stasis dermatitis. 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 Patient is currently on metoprolol 50 mg but has not done any follow- up. Patient is currently on Suboxone 8 mg a day for her drug addiction problems and states her last use was 5 months ago. Progress of Wound: The patient's wounds are stable. Patient did Not tolerate the 3M's for compression.She continues to note pain in the ulcerations and is requesting narcotic analgesia, however due to her past history of drug abuse inform patient that I could not give her this medication she would have to discuss with her primary care. Her wound cultures from prior were resolved and showed staph epidermidis likely skin contaminants. Vascular results were reviewed with her and showed normal ABIs and bilateral venous insufficiency. Of note, since taking over the patient's wound care she has consistently shown up 45 minutes to an hour and 15 minutes late thus interfering with her overall plan of care. - Physical Exam Vital Signs Temp Pulse Resp BP Pulse Ox 97.5 F L 118 H 16 137/87 H 84 09/28/19 14:37 09/28/19 14:37 09/28/19 14:37 09/28/19 14:37 09/21/19 15:14 General: Alert, Oriented x3, Cooperative, No apparent distress HEENT: Atraumatic Oral: Moist Mucosa Lungs: Clear to auscultation, Normal air movement Cardiovascular: Regular rate Abdomen: Soft, Obese Extremities: No clubbing, No cyanosis, Edema - Generalized bilateral lower extremity edema with chronic venous changesAnd hemosiderin staining bilateral lower extremities Skin: Ulcer/ Wound - See nursing documentation, slough and devitalized tissue present, no signs of obvious infection at this time Wound Measurements and Assessment WC - Nurse 1 - General Ulcer Measurement Start: 09/07/19 15:07 Freq: Status: Active Protocol: Activity Type Activity Date Activity User E-Sign Co-Sign Detail Recorded Client Recorded Date Recorded By Document 09/28/19 14:37 [facility] [id number] 09/28/19 14:58 [facility] 09/28/19 14:37 Wound Center Nurse 1 [Ulcer Assessment] #3 MEDIAL LLE -Combined with other wound No -Current Size (cm) - Length 1.8 -Current Size (cm) - Width 1.4 -Current Size (cm) - Depth 0.1 -Total Square Cm 2.52 -Photo Taken No -Epithelialization None Present -Tunneling No -Undermining/Tunneling No -Circular Undermining No -Exudate Amt Small -Exudate Type Sanguineous -Wound Margin Distinct, Outline Attached -Granulation Amt Large (67-100%) -Granulation Quality Red -Slough/Fibrin No -Necrosis Amt None Present (0 %) -Texture (Nicolasa-wound Skin Appearance) Assessed, Scarring -Moisture (Nicolasa-wound Skin Appearance No Abnormality ) -Color (Nicolasa-wound Skin Appearance) Assessed, Erythema, Hemosiderin Staining -Temperature (Nicolasa-wound Skin No Abnormality Appearance) (Pt Warm) -Tenderness on Palpation (Nicolasa-wound Yes Skin Appearance) -Ulcer Cleansing SOAPY WATER -Foul Odor after Cleansing No -Anesthetic Used 5% Lidocaine Gel #2 LEFT MEDIAL ANKLE -Combined with other wound No -Current Size (cm) - Length 0.5 -Current Size (cm) - Width 1 -Current Size (cm) - Depth 0.1 -Total Square Cm 0.5 -Photo Taken No -Epithelialization Small 1-33% -Tunneling No -Undermining/Tunneling No -Circular Undermining No -Exudate Amt Small -Exudate Type Sanguineous -Wound Margin Flat & Intact -Granulation Amt Large (67-100%) -Granulation Quality Red -Slough/Fibrin Yes -Necrosis Amt Small (1-33%) -Necrotic Tissue Type Adherent Slough -Texture (Nicolasa-wound Skin Appearance) Assessed, Scarring -Moisture (Nicolasa-wound Skin Appearance Assessed,Dry/ ) Scaly -Color (Nicolasa-wound Skin Appearance) Assessed, Erythema, Hemosiderin Staining -Temperature (Nicolasa-wound Skin No Abnormality Appearance) (Pt Warm) -Tenderness on Palpation (Nicolasa-wound No Skin Appearance) -Ulcer Cleansing SOAPY WATER -Foul Odor after Cleansing No -Anesthetic Used 5% Lidocaine Gel #1 DORSAL RIGHT FOOT -Combined with other wound No -Current Size (cm) - Length 2.9 -Current Size (cm) - Width 2 -Current Size (cm) - Depth 0.1 -Total Square Cm 5.8 -Photo Taken No -Epithelialization None Present -Tunneling No -Undermining/Tunneling No -Circular Undermining No -Exudate Amt Small -Exudate Type Serosanguineous -Wound Margin Flat & Intact -Granulation Amt Medium (34-66%) -Granulation Quality Red -Slough/Fibrin Yes -Necrosis Amt Medium (34-66%) -Necrotic Tissue Type Adherent Slough -Texture (Nicolasa-wound Skin Appearance) Assessed, Scarring -Moisture (Nicolasa-wound Skin Appearance Assessed,Dry/ ) Scaly -Color (Nicolasa-wound Skin Appearance) Assessed, Hemosiderin Staining -Temperature (Nicolasa-wound Skin No Abnormality Appearance) (Pt Warm) -Tenderness on Palpation (Nicolasa-wound Yes Skin Appearance) -Ulcer Cleansing SOAPY WATER -Foul Odor after Cleansing No -Anesthetic Used 5% Lidocaine Gel [Edema Assessment] -Lower Limb Edema Present Yes -Right Calf (cm) 37.5 -Right Ankle (cm) 22.6 -Left Calf (cm) 37.4 -Left Ankle (cm) 23.5 WC - Nurse 2 - General Ulcer CM Notes Start: 09/07/19 15:07 Freq: Status: Active Protocol: Activity Type Activity Date Activity User E-Sign Co-Sign Detail Recorded Client Recorded Date Recorded By Document 09/28/19 15:03 MW [id number] 09/28/19 15:11 MW 09/28/19 15:03 Wound Center Nurse 2 [Procedure/Treatment] #3 MEDIAL LLE -Time 15:03 -Correct Patient Yes -Correct Side, Site, Position Yes -Correct Procedure Yes -Procedure Performed Yes -Type of Procedure Debridement -Clinical Debridement Subcutaneous -Post Debridement Size (cm) - Length 2.0 -Post Debridement Size (cm) - Width 2.1 -Post Debridement Size (cm) - Depth 0.1 -Total Square Cm 4.20 -Wound/Ulcer Outcome Not Healed -Ulcer Cleansing Rinsed/ Irrigated with Saline -Foul Odor after Cleansing No -Bioengineered Tissue No -Bleeding Controlled with Pressure -Offloading No -Treatment Response Procedure Tolerated Well #2 LEFT MEDIAL ANKLE -Time 15:04 -Correct Patient Yes -Correct Side, Site, Position Yes -Correct Procedure Yes -Procedure Performed Yes -Type of Procedure Debridement -Clinical Debridement Subcutaneous -Post Debridement Size (cm) - Length 0.8 -Post Debridement Size (cm) - Width 1.1 -Post Debridement Size (cm) - Depth 0.1 -Total Square Cm 0.88 -Wound/Ulcer Outcome Not Healed -Ulcer Cleansing Rinsed/ Irrigated with Saline -Foul Odor after Cleansing No -Bioengineered Tissue No -Bleeding Controlled with Pressure -Offloading No -Treatment Response Procedure Tolerated Well #1 DORSAL RIGHT FOOT -Time 15:04 -Correct Patient Yes -Correct Side, Site, Position Yes -Correct Procedure Yes -Procedure Performed Yes -Type of Procedure Debridement -Clinical Debridement Subcutaneous -Post Debridement Size (cm) - Length 2.8 -Post Debridement Size (cm) - Width 2.2 -Post Debridement Size (cm) - Depth 0.1 -Total Square Cm 6.16 -Wound/Ulcer Outcome Not Healed -Ulcer Cleansing Rinsed/ Irrigated with Saline -Foul Odor after Cleansing No -Bioengineered Tissue No -Bleeding Controlled with Pressure -Offloading No -Treatment Response Procedure Tolerated Well [See Physician Procedure note for Specifics] Pain Scale: 0-10 Numeric [Pain] -Is Patient Pain Free? Yes Neurological: Neuro grossly intact Psych/Mental Status: Normal Affect, Appropriate, Alert and oriented to time, place, person, mood and affect Debridement Note Post-Debridement Measurements/Treatment WC - Nurse 2 - General Ulcer CM Notes Start: 09/07/19 15:07 Freq: Status: Active Protocol: Activity Type Activity Date Activity User E-Sign Co-Sign Detail Recorded Client Recorded Date Recorded By Document 09/07/19 15:30 MW [id number] 09/07/19 15:43 MW Document 09/14/19 12:19 JF [id number] 09/14/19 12:20 JF Document 09/21/19 15:39 MW [id number] 09/21/19 15:52 MW Document 09/28/19 15:03 MW [id number] 09/28/19 15:11 MW 09/07/19 09/14/19 09/21/19 15:30 12:19 15:39 Wound Center Nurse 2 #3 MEDIAL LLE -Time 15:30 15:39 -Correct Patient Yes No Yes -Correct Side, Site, Position Yes No Yes -Correct Procedure Yes No Yes -Procedure Performed Yes No Yes -Type of Procedure Debridement Debridement -Clinical Debridement Subcutaneous Subcutaneous -Post Debridement Size (cm) - Length 2.4 2.2 -Post Debridement Size (cm) - Width 2.4 1.8 -Post Debridement Size (cm) - Depth 0.1 0.1 -Total Square Cm 5.76 3.96 -Wound/Ulcer Outcome Not Healed Not Healed Not Healed -Ulcer Cleansing Rinsed/ Rinsed/ Irrigated with Irrigated with Saline Saline -Foul Odor after Cleansing No No -Bioengineered Tissue Yes No -Type of bioengineered Tissue Apligraf -Expiration Date 09/16/19 -Product Lot Number [id number] -Percent Used 100 -Saline Lot Number [id number] -Bleeding Controlled with Pressure Pressure -Offloading No No -Treatment Response Procedure Procedure Tolerated Well Tolerated Well #2 LEFT MEDIAL ANKLE -Time 15:32 15:48 -Correct Patient Yes No Yes -Correct Side, Site, Position Yes No Yes -Correct Procedure Yes No Yes -Procedure Performed Yes No Yes -Type of Procedure Debridement Debridement -Clinical Debridement Subcutaneous Subcutaneous -Post Debridement Size (cm) - Length 1.0 1.0 -Post Debridement Size (cm) - Width 1.5 1.4 -Post Debridement Size (cm) - Depth 0.1 0.1 -Total Square Cm 1.50 1.40 -Wound/Ulcer Outcome Not Healed Not Healed Not Healed -Ulcer Cleansing Rinsed/ Rinsed/ Irrigated with Irrigated with Saline Saline -Foul Odor after Cleansing No No -Bioengineered Tissue Yes No -Type of bioengineered Tissue Apligraf -Expiration Date 09/16/19 -Product Lot Number [id number] -Percent Used 100 -Saline Lot Number [id number] -Bleeding Controlled with Pressure Pressure -Offloading No No -Treatment Response Procedure Procedure Tolerated Well Tolerated Well #1 DORSAL RIGHT FOOT -Time 15:32 15:48 -Correct Patient Yes No Yes -Correct Side, Site, Position Yes No Yes -Correct Procedure Yes No Yes -Procedure Performed Yes No Yes -Type of Procedure Debridement Debridement -Clinical Debridement Subcutaneous Subcutaneous -Post Debridement Size (cm) - Length 2.9 3.0 -Post Debridement Size (cm) - Width 1.9 2.4 -Post Debridement Size (cm) - Depth 0.1 0.1 -Total Square Cm 5.51 7.20 -Wound/Ulcer Outcome Not Healed Not Healed Not Healed -Ulcer Cleansing Rinsed/ Rinsed/ Irrigated with Irrigated with Saline Saline -Foul Odor after Cleansing No No -Bioengineered Tissue Yes No -Type of bioengineered Tissue Apligraf -Expiration Date 09/16/19 -Product Lot Number [id number] -Percent Used 100 -Saline Lot Number [id number] -Bleeding Controlled with Pressure Pressure -Offloading No No -Treatment Response Procedure Procedure Tolerated Well Tolerated Well Pain Scale: 0-10 Numeric Is Patient Pain Free? Yes Yes Yes 09/28/19 15:03 Wound Center Nurse 2 #3 [facility] LLE -Time 15:03 -Correct Patient Yes -Correct Side, Site, Position Yes -Correct Procedure Yes -Procedure Performed Yes -Type of Procedure Debridement -Clinical Debridement Subcutaneous -Post Debridement Size (cm) - Length 2.0 -Post Debridement Size (cm) - Width 2.1 -Post Debridement Size (cm) - Depth 0.1 -Total Square Cm 4.20 -Wound/Ulcer Outcome Not Healed -Ulcer Cleansing Rinsed/ Irrigated with Saline -Foul Odor after Cleansing No -Bioengineered Tissue No -Type of bioengineered Tissue -Expiration Date -Product Lot Number -Percent Used -Saline Lot Number -Bleeding Controlled with Pressure -Offloading No -Treatment Response Procedure Tolerated Well #2 LEFT MEDIAL ANKLE -Time 15:04 -Correct Patient Yes -Correct Side, Site, Position Yes -Correct Procedure Yes -Procedure Performed Yes -Type of Procedure Debridement -Clinical Debridement Subcutaneous -Post Debridement Size (cm) - Length 0.8 -Post Debridement Size (cm) - Width 1.1 -Post Debridement Size (cm) - Depth 0.1 -Total Square Cm 0.88 -Wound/Ulcer Outcome Not Healed -Ulcer Cleansing Rinsed/ Irrigated with Saline -Foul Odor after Cleansing No -Bioengineered Tissue No -Type of bioengineered Tissue -Expiration Date -Product Lot Number -Percent Used -Saline Lot Number -Bleeding Controlled with Pressure -Offloading No -Treatment Response Procedure Tolerated Well #1 DORSAL RIGHT FOOT -Time 15:04 -Correct Patient Yes -Correct Side, Site, Position Yes -Correct Procedure Yes -Procedure Performed Yes -Type of Procedure Debridement -Clinical Debridement Subcutaneous -Post Debridement Size (cm) - Length 2.8 -Post Debridement Size (cm) - Width 2.2 -Post Debridement Size (cm) - Depth 0.1 -Total Square Cm 6.16 -Wound/Ulcer Outcome Not Healed -Ulcer Cleansing Rinsed/ Irrigated with Saline -Foul Odor after Cleansing No -Bioengineered Tissue No -Type of bioengineered Tissue -Expiration Date -Product Lot Number -Percent Used -Saline Lot Number -Bleeding Controlled with Pressure -Offloading No -Treatment Response Procedure Tolerated Well Pain Scale: 0-10 Numeric Is Patient Pain Free? Yes Wound debrided: Left and right venous leg ulcers Type of Debridement: Excisional debridement Anesthesia Used: 5% Lidocaine Gel Depth: in the subcutaneous layer Percentage of wound debrided: 100 Instrument Used: 5mm curette Tissue Removed: Slough and devitalized tissue Severity: Fat Layer Exposed Amount of bleeding with debridement: Mild Bleeding Controlled with: Pressure Patient tolerated procedure well Assessment/Plan Active Problems Drug addiction (Acute) Edema of both lower extremities due to peripheral venous insufficiency (Acute) PVD (peripheral vascular disease) (Acute) Venous ulcer of right lower extremity with varicose veins (Acute) Venous stasis ulcer of left lower extremity (Acute) Assessment: Drug addiction skin popping. Abscesses left lower leg and upper leg from use. Right dorsal foot traumatic opening. Malignant hypertension. Poor hygiene Plan: The patient was seen and examined at the wound center today and was updated on the plan of care. A subcutaneous debridement was performed today. The patient tolerated the procedure well. The patients wound care will consist of:ulcers to be covered with nonadherant silvercell with Double Tubigrip's for compression, hold apligraf, wound cultures collected Prior and showed staph epidermidis, likely skin contaminants. Vascular studies reviewed and showed normal ABIs and showed bilateral venous insufficiency. Patient educated on the importance of diet on wound healing and instructed to increase protein and vitamin C intake. Patient verbalized understanding. Patient will follow up at wound healing center in one week or sooner if needed. This note was generated with [employer] dictation software. It may contain incorrect words, spelling, and punctuation that were not noted in checking the note before signing. [id number]: [id number] Aditi subq tissue 20 sq cm/<
== END 2019-10-03 23:59 ==
LOC: WC 14:30
PROVIDERS: Family Provider Family Medicine; PCP Family Medicine; Referring Provider Nurse Practitioner; Visit Provider Nurse Practitioner Family
DX: I83.018 Varicose veins of right lower extremity with ulcer other part of lower leg (principal); I83.028 Varicose veins of left lower extremity with ulcer other part of lower leg; L97.812 Non-pressure chronic ulcer of other part of right lower leg with fat layer exposed; L97.822 Non-pressure chronic ulcer of other part of left lower leg with fat layer exposed; I87.2 Venous insufficiency (chronic) (peripheral); R60.0 Localized edema; F19.20 Other psychoactive substance dependence, uncomplicated; L02.416 Cutaneous abscess of left lower limb; I10 Essential (primary) hypertension
CPT/HCPCS: 11042; 15271; 29581; 87070; 87075; 87077; 87186; 87205; 99212; Q4101; G0463

== ENCOUNTER 2019-10-19 12:00 | Outpatient (RCR) | payer BC, SELFPAY ==
[2019-10-04 00:34] VITALS: BP 137/87; PULSE 118; RESP 16; TEMP 36.4; O2SAT 84
== END 2019-11-02 23:59 ==
LOC: WC 12:00
PROVIDERS: Family Provider Family Medicine; PCP Family Medicine; Referring Provider Nurse Practitioner; Visit Provider Nurse Practitioner Family
DX: Z09 Encounter for follow-up examination after completed treatment for conditions other than malignant neoplasm (principal)

== ENCOUNTER 2020-01-16 19:12 | Emergency (ER) | payer OTHER, SELFPAY ==
[2020-01-16 19:14] VITALS: BP 149/85; PULSE 112; RESP 18; TEMP 36.7; O2SAT 100; BMI 30.1
--- NOTE | 2020-01-16 19:40 | ED.DCSUM_ITS ---
- ER Visit Summary Date of Service: 01/16/20 Chief Complaint: Bilateral foot wounds History of Present Illness: The patient is a 34 F who presents with wounds to both feet that have gotten worse over the past couple days. Patient has a history of chronic wounds and sees the wound care center. Patient states that the wounds on her right foot became worse. Patient states that she noted maggots in her wound yesterday. cleaned her wounds and applied Adaptic dressings. Patient denies any fevers or chills. Patient does admit to some mild serous drainage from the wounds. Patient denies any calf pain. Patient denies any nausea or vomiting. Physical Examination: Vital signs are stable. Patient is afebrile. Patient is in no acute distress. Skin is warm and dry. There are ulcerations over the dorsal aspect of the feet bilaterally, 2 on the right and 1 on the left. There is some surrounding erythema. There is some mild tenderness. There is no purulent discharge or drainage. Capillary refill was less than 2 seconds in all digits. There is good range of motion of the feet bilaterally. Sensation was intact to light touch in all digits. Emergency Department Course and Treatment: Patient was given a dose of Keflex here. Patient was given a prescription for Keflex. Patient was instructed to keep the wound clean and dry. Patient and her were instructed to continue the Adaptic dressings. Patient was instructed to follow-up with the wound care center in 3 to 5 days. Patient understood and was agreeable with the plan. All questions were answered. Disposition: Discharge home Impression: Infected wounds bilateral feet This note was generated with [employer] dictation software. It may contain incorrect words, spelling, and punctuation that were not noted in review of the chart prior to signing ED Disposition - Plan for ED Patient: Disposition: Home or Assisted Living Diagnosis: Infected open wound Instructions: Pressure Ulcer Prescriptions: Cephalexin [Keflex] 500 mg PO Q6 #40 cap Transmission Status: Pending to [facility] Referrals: Stanislaw Florian DO [Primary Care Provider] - 3-5 Days
[2020-01-16] MEDS: Cephalexin 500 MG Capsule PO (20:18)
== END 2020-01-16 20:20 | disposition home or self-care (01) ==
PROVIDERS: Emergency Provider Emergency Medicine; PCP Family Medicine
DX: L97.529 Non-pressure chronic ulcer of other part of left foot with unspecified severity (principal); L97.519 Non-pressure chronic ulcer of other part of right foot with unspecified severity; L08.9 Local infection of the skin and subcutaneous tissue, unspecified; I10 Essential (primary) hypertension; Z72.0 Tobacco use
CPT/HCPCS: 99282